=== PATIENT | female | born 1975 | race Caucasian/White ===

== ENCOUNTER 2022-12-04 20:58 | Outpatient (REF) | payer OTHER, SELFPAY ==
[2022-12-09 18:07] LABS: Age Gdln ACOG Testing Note (.); HPV Aptima Negative (Negative); IGP, Aptima HPV, rfx 16/18,45 Note (.)
== END 2022-12-04 20:59 | disposition home or self-care (01) ==
LOC: LAB 20:58
PROVIDERS: Visit Provider Physician Assistant
DX: Z12.4 Encounter for screening for malignant neoplasm of cervix (principal)
CPT/HCPCS: 87624; G0145

== ENCOUNTER 2022-12-18 15:54 | Outpatient (OUT) | payer OTHER, SELFPAY ==
[2022-12-18 16:43] LABS: Basophils Percent Auto 0.1 % (0.2-2.0); Eosinophils Absolute Auto 0.3 10^3/uL (0.0-0.7); Eosinophils Percent Auto 3.6 % (0.9-7.0); Hematocrit 37.2 % (36.0-48.0); Hemoglobin 12.3 g/dL (12.0-16.0); Immature Granulocytes Abs Auto 0.02 10^3/uL (0.00-0.03); Immature Granulocytes Pct Auto 0.3 % (0.0-0.5); Lymphocytes Absolute Auto 1.7 10^3/uL (1.2-3.8); Lymphocytes Percent Auto 24.5 % (20.5-60.0); Mean Corpuscular HGB Conc 33.1 g/dL (29.9-35.2); Mean Corpuscular Hemoglobin 30.4 pg (26.7-34.0); Mean Corpuscular Volume 91.9 fL (81.0-99.0); Mean Platelet Volume 10.1 fL (9.5-13.5); Monocytes Absolute Auto 0.4 10^3/uL (0.3-0.8); Monocytes Percent Auto 5.5 % (1.7-12.0); Neutrophils Absolute Auto 4.6 10^3/uL (1.4-6.5); Platelet Count 287 10^3/uL (150-450); Red Blood Count 4.05 10^6/uL (4.20-5.40); Red Cell Distribution Width 13.8 % (11.0-15.0)
[2022-12-18 17:41] LABS: HCG Quantitative <1 mIU/mL; Thyroid Stimulating Hormone 1.311 uIU/mL (0.358-3.740)
[2022-12-18 18:01] LABS: Estimated Average Glucose 94 mg/dL; Glycohemoglobin A1C 4.9 % (4.5-6.2)
[2022-12-20 04:07] LABS: Prolactin 11.7 ng/mL (4.8-23.3)
== END 2022-12-18 15:55 | disposition home or self-care (01) ==
PROVIDERS: Visit Provider Physician Assistant
DX: N91.2 Amenorrhea, unspecified (principal)
CPT/HCPCS: 36415; 83036; 84146; 84443; 84702; 85025

== ENCOUNTER 2023-01-02 08:13 | Outpatient (OUT) | payer OTHER, SELFPAY ==
[2023-01-02 10:40] LABS: Free T3 2.16 pg/mL (2.18-3.98); Glucose 83 mg/dL (74-106); Thyroid Stimulating Hormone 0.885 uIU/mL (0.358-3.740)
[2023-01-02 11:00] LABS: Free T4 0.71 ng/dL (0.76-1.46)
[2023-01-03 04:07] LABS: DHEA-Sulfate 72.7 ug/dL (41.2-243.7); Progesterone 0.1 ng/mL (.); Sex Horm Binding Glob, Serum 80.9 nmol/L (24.6-122.0)
[2023-01-03 12:08] LABS: Insulin 4.3 uIU/mL (2.6-24.9)
[2023-01-03 14:10] LABS: C-Peptide, Serum 1.5 ng/mL (1.1-4.4)
[2023-01-05 12:08] LABS: Calcitriol(1,25 di-OH Vit D) 43.3 pg/mL (24.8-81.5)
[2023-01-05 17:08] LABS: Thyroglobulin Antibody <1.0 IU/mL (0.0-0.9); Thyroid Peroxidase (TPO) Ab 14 IU/mL (0-34)
[2023-01-06 14:13] LABS: Estrone, Serum 74 pg/mL (.)
[2023-01-06 16:08] LABS: Reverse T3, Serum 14.1 ng/dL (9.2-24.1)
[2023-01-08 06:09] LABS: Serotonin, Serum 101 ng/mL (31-207)
[2023-01-09 18:11] LABS: Free Testosterone(Direct) 0.7 pg/mL (0.0-4.2); Testosterone 23 ng/dL (4-50)
== END 2023-01-02 08:14 | disposition home or self-care (01) ==
PROVIDERS: Visit Provider Obstetrics & Gynecology
DX: E28.319 Asymptomatic premature menopause (principal); R68.82 Decreased libido; R45.86 Emotional lability
CPT/HCPCS: 36415; 82530; 82627; 82652; 82670; 82679; 82728; 82947; 83525; 84144; 84260; 84270; 84402; 84403; 84439; 84443; 84481; 84482; 84681; 86800

== ENCOUNTER 2025-02-15 20:48 | Outpatient (REF) | payer OTHER, SELFPAY ==
--- OUTSIDE RECORDS SUMMARY | 2011-11-03 07:29 | XMS_ITS | Continuity of Care Document ---
Author Organization [facility] In [facility] [employer] Address [address] [place] [address] Phone Care Team Providers Care Purchasing Clerk Name Role Phone Meghan Bowling Unavailable [...] Provider Providers Copied on Encounter [facility] [employer] [facility], [address] [address], [place], [place], [facility], tel:[phone] JAVON ATKINS No Information 2 Tawnya Meghan. [address] [address], [place], [place], [address] , [place]. tel:[phone] Offic/outpt E&m Estab Minor 10 [facility] [employer] [facility], [address] [address], [place], [place], [facility], tel:[phone] JAVON ATKINS Vaginal Rash (chief complaint) Bacterial Vaginosis/ Nonspecific 2 Tawnya Christianson. [address] [address], [place], [place], [address] , [place]. tel:[phone] [facility] [employer] [facility], [address] [address], [facility] [place], [facility], tel:[phone] JAVON ATKINS abnormal pap smear (chief complaint) No Information 2 Tawnya Christianson. [address] [address], [place], [place], [address] , [place]. tel:[phone] Offic/outpt E&m Estab Low-mod [facility] [employer], [address], [place], [address], [place] tel:[phone] JAVON NICHOLSONMIPUNEET abnormal pap smear (chief complaint) No Information 2 Tawnyakaterin Khanen. [address] [address], [place], [place], [address] , [place]. tel:[phone] Preven Meds E&m Estab Pt; 18-3 [facility] [employer] [facility], [address] [address], [place], [address], [place] tel:[phone] JAVON ATKINS annual visit (chief complaint) Dysplasia Of CX- MildRoutine LICENSED BONDSMAN Exam W/wo A PapContracepti ve Mangmt NecOther Procreative Management Cons Advice 1 Tawnya Christianson. [address] [address], [place], [place], [address] , [place]. 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 [address] [address], [place], [place], [address] , [place]. tel:[phone] Offic/outpt E&m Estab Low-mod [facility] [employer] [facility], [address] [address], [place], [address], [place] tel:[phone] JAVON NICHOLSONMILL No Information 1 Tawnya Christianson. [address] [address], [place], [place], [address] , [place]. tel:[phone] Preven Meds E&m Estab Pt; 18-3 [facility] [employer] [facility], [address], [place], [address], [place] tel:[phone] KANEZACOOG MILLY No Information [address] Tawnya Christianson. [address] [address], [place], [place], [address] , [place]. tel:[phone] Family History Family Member Type Diagnosis Age [...] Covered libertarian ID Liam casianocathie(cleve) Yoandy BREANNAO [id number] Social History Type Description Quantity Date Captured Comments Sex Female Smoking Status No Information Chief Complaint And Reason For Visit No Information Reason For Referral Reason For Referral No Information Plan Of Treatment Date Type Action Status Goal Tdap. Due on due Goal LICENSED BONDSMAN exam. Due on due Goal PAP. Due on due Goal Breast exam. Due on 010 due History Of Present Illness Encounter Date Complaint History Of Prese nt Illness No Information Functional Status Date Functional Assessmen t No Information Instructions Date Instruction Additional Infor mation No Information Assessments Type Assessment Date No Information Patient Care Teams Name Effective Dates (start - stop) Status Members No Information
--- OUTSIDE RECORDS SUMMARY | 2011-11-03 07:29 | XMS_ITS | Continuity of Care Document ---
Author Organization [facility] In [facility] [employer] Address [address] [place] [address] Phone Care Team Providers Care Government Teacher Name Role Phone Meghan Bowling Unavailable Unavailable [...] Provider Providers Copied on Encounter [facility] [employer] [facility], [address] [address], [place], [place], [facility], tel:[phone] JAVON ATKINS No Information 2 Tawnya Meghan. [address] [address], [place], [place], [address] , [place]. tel:[phone] Offic/outpt E&m Estab Minor 10 [facility] [employer] [facility], [address] [address], [place], [place], [facility], tel:[phone] JAVON ATKINS Vaginal Rash (chief complaint) Bacterial Vaginosis/ Nonspecific 2 Tawnya Christianson. [address] [address], [place], [place], [address] , [place]. tel:[phone] [facility] [employer] [facility], [address] [address], [facility] [employer] [place], [facility], tel:[phone] JAVON ATKINS abnormal pap smear (chief complaint) No Information 2 Tawnya Christianson. [address] [address], [place], [place], [address] , [place]. tel:[phone] Offic/outpt E&m Estab Low-mod [facility] [employer], [address], [facility] [place], [address], [place] tel:[phone] JAVON NICHOLSONMIPUNEET abnormal pap smear (chief complaint) No Information 2 Tawnyakaterin Khanen. [address] [address], [place], [place], [address] , [place]. tel:[phone] Preven Meds E&m Estab Pt; 18-3 [facility] [employer] [facility], [address] [address], [facility] [place], [address], [place] tel:[phone] JAVON ATKINS annual visit (chief complaint) Dysplasia Of CX- MildRoutine MANAGER OF PROGRAM Exam W/wo A PapContracepti ve Mangmt NecOther Procreative Management Cons Advice 1 Tawnya Christianson. [address] [address], [place], [place], [address] , [place]. 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 [address] [address], [place], [place], [address] , [place]. tel:[phone] Offic/outpt E&m Estab Low-mod [facility] [employer] [facility], [address] [address], [facility] [place], [address], [place] tel:[phone] JAVON NICHOLSONMILL No Information 1 Tawnya Christianson. [address] [address], [place], [place], [address] , [place]. tel:[phone] Preven Meds E&m Estab Pt; 18-3 [facility] [employer] [facility], [address], [place], [address], [place] tel:[phone] KANEZACOOG MILLY No Information [address] Tawnya Christianson. [address] [address], [place], [place], [address] , [place]. tel:[phone] Family History Family Member Type Diagnosis Age [...] (finding) Payers Payer name Insurance type Covered republican ID Liam casianocathie(cleve) Yoandy BREANNAO [id number] Social History Type Description Quantity Date Captured Comments Sex Female Smoking Status No Information Chief Complaint And Reason For Visit No Information Reason For Referral Reason For Referral No Information Plan Of Treatment Date Type Action Status Goal Tdap. Due on due Goal MANAGER OF PROGRAM exam. Due on due Goal PAP. Due [...]
[2025-02-20 12:08] LABS: Age Gdln ACOG Testing Note (.); IGP, Aptima HPV, rfx 16/18,45 Note (.)
== END 2025-02-15 20:49 | disposition home or self-care (01) ==
LOC: LAB 20:48
PROVIDERS: Visit Provider Obstetrics & Gynecology
DX: Z01.419 Encounter for gynecological examination (general) (routine) without abnormal findings (principal)
CPT/HCPCS: 87624; 88175

== ENCOUNTER 2025-03-23 12:28 | Emergency (ER) | payer OTHER, SELFPAY ==
--- OUTSIDE RECORDS SUMMARY | 2011-11-03 07:29 | XMS_ITS | Continuity of Care Document ---
Author Organization Associates In [facility] [employer] Address [address] [place] [address] Phone Care Team Providers Care Reconsignment Clerk Name Role Phone Meghan Bowling Unavailable Unavailable Allergies, Adverse Reactions, Alerts Substance Reaction Status Criticality PROCHLORPERAZINE MALEATE Active No Information PROCHLORPERAZINE EDISYLATE Active N o Information Phenothiazines Active No Informatio n Medications Medication Instructions Dosage Effective Dates (start - stop) Status Comments Neosporin 1.75 mg-10K unit-0.025 mg/mL Eye Drops apply by Topical route Not Available - Active Ortho-Cyclen (28) 0.25 mg-35 mcg Tab take 1 tablet by oral route every day - Active VITAMIN C (unknown strength) Not Available - Active TRIAMCINOLONE (unknown strength) Not Available - Active FIBER (unknown strength) Not Available - Active MULTIVITAMINS (unknown strength) take 1 capsule by oral route every day Not Available - Active Procedures Procedure Date Offic/outpt E&m Estab Minor 12 Offic/outpt E&m Estab Minor 12 Colposcopy; W/bx-cerv &/or End 12 Offic/outpt E&m Estab Low-mod 2 Offic/outpt E&m Estab Low-mod 2 Cytopath Cerv/vag Thin Prep; R 12 Cytopath Cerv/vag; Req Interpt 12 Preven Meds E&m Estab Pt; 18-3 11 Preven Meds E&m Estab Pt; 11 Offic/outpt E&m Estab Low-mod 1 Cytopath Cerv/vag Thin Prep; R 11 Cytopath Cerv/vag; Req Interpt 11 Offic/outpt E&m Estab Low-mod 1 Offic/outpt E&m Estab Low-mod 1 Cytopath Cerv/vag Thin Prep; R 11 Cytopath Cerv/vag; Req Interpt 11 Preven Meds E&m Estab Pt; 10 Cytopath Cerv/vag Thin Prep; R 10 Advance Directives Directive Yes / No Effective Date File Name No Information Encounters Encounter Description Practice Location Reason(s) For Visit Diagnoses Date Provider Providers Copied on Encounter [facility] [employer] [facility], [address] [address], [place], [place], [facility], tel:[phone] JAVON ATKINS No Information 2 Tawnya Meghan. [address] [address], [place], [place], [address] , [place]. tel:[phone] Offic/outpt E&m Estab Minor 10 [facility] [employer] [facility], [address] [address], [place], [place], [facility], tel:[phone] JAVON ATKINS Vaginal Rash (chief complaint) Bacterial Vaginosis/ Nonspecific 2 Tawnya Christianson. [address] [address], [place], [place], [address] , [place]. tel:[phone] [facility] [employer] [facility], [address] [address], [facility] [place], [facility], tel:[phone] JAVON ATKINS abnormal pap smear (chief complaint) No Information 2 Tawnya Christianson. [address] [address], [place], [place], [address] , [place]. tel:[phone] Offic/outpt E&m Estab Low-mod [facility] [employer], [address], [place], [address], [place] tel:[phone] JAVON NICHOLSONMIPUNEET abnormal pap smear (chief complaint) No Information 2 Tawnyakaterin Khanen. [address] [address], [place], [place], [address] , [place]. tel:[phone] Preven Meds E&m Estab Pt; 18-3 [facility] [employer] [facility], [address] [address], [place], [address], [place] tel:[phone] JAVON ATKINS annual visit (chief complaint) Dysplasia Of CX- MildRoutine INSTALLMENT AGENT Exam W/wo A PapContracepti ve Mangmt NecOther Procreative Management Cons Advice 1 Tawnya Christianson. [address] [address], [place], [place], [id number] , [place]. 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 [address] [address], [place], [place], [address] , [place]. tel:[phone] Offic/outpt E&m Estab Low-mod [facility] [employer] [facility], [address] [address], [place], [address], [place] tel:[phone] JAVON NICHOLSONMILL No Information 1 Tawnya Christianson. [address] [address], [place], [place], [address] , [place]. tel:[phone] Preven Meds E&m Estab Pt; 18-3 [facility] [employer] [facility], [address], [place], [address], [place] tel:[phone] KANEZACOOG MILLY No Information 0 Tawnya Christianson. [address] [address], [place], [place], [address] , [place]. tel:[phone] Family History Family Member Type Diagnosis Age At Onset Father Problem (finding) alcoholism Maternal grandmother Problem (finding) cancer (Cause O f ) Maternal grandmother Problem (finding) Mother Problem (finding) diabetes melli tus in first degree relative Maternal grandfather Problem (finding) Maternal grandfather Problem (finding) malignant neoplasm of lung (Cause Of ) Maternal grandmother Problem (finding) Maternal grandfather Problem (finding) Payers Payer name Insurance type Covered libertarian ID Liam casianocathie(cleve) Yoandy BREANNAO [id number] Social History Type Description Quantity Date Captured Comments Sex Female Smoking Status No Information Chief Complaint And Reason For Visit No Information Reason For Referral Reason For Referral No Information Plan Of Treatment Date Type Action Status Goal Breast exam. Due on 010 due Goal PAP. Due on due Goal INSTALLMENT AGENT exam. Due on due Goal Tdap. Due on due History Of Present Illness Encounter Date Complaint History Of Prese nt Illness No Information Functional Status Date Functional Assessmen t No Information Instructions Date Instruction Additional Infor mation No Information Assessments Type Assessment Date No Information Patient Care Teams Name Effective Dates (start - stop) Status Members No Information
--- OUTSIDE RECORDS SUMMARY | 2025-03-21 15:35 | XMS_ITS | Encounter Summary ---
Author Organization [facility] Address [address] [facility] [place] [address] Care Team Providers Care Inspector Structural Bonding Name Role Phone Shu Kitchen MD Primary Care Provider [phone] Encounter Details DateTypeDepartmentCare Team (Latest Contact Info)Obfcwhcrbsh85/23/2025 3:35 PM ESTOffice Visit [facility] [address] [facility] [address] [place] [id number] Ally Romero, SALES CONTRACTS ANALYST [address] [place] [address] Acute cough (Primary Dx); Pharyngitis, unspecified etiology; Bronchitis Social History Tobacco UseTypesPacks/DayYears UsedDateSmoking Tobacco: UnknownAlcohol Use Standard Drinks/WeekCommentsYes1 (1 standard drink = 0.6 oz pure alcohol) Caffeine intake: 1-2 cups per dayCommentsNoSex and Gender Information ValueDate RecordedSex Assigned at OwgwgXzwplm95/07/2023 9:39 AM EDTLegal Sex Sfporg5406/11/2022 7:27 PM EDTGender PlytxtfbRdqtxt93/07/2023 9:39 AM EDTSexual CembaaijeuhPcsuawnp67/07/2023 9:39 AM EDTdocumented as of this encounter Last Filed Vital Signs Vital SignReadingTime TakenCommentsBlood Knygbugh708/6803/21/2025 3:33 PM EST Xfjyv252003/21/2025 3:33 PM ZQFLkqydlkrzjl11 ??C (98.6 ??F)03/21/2025 3:33 PM EST Respiratory Loow824305/22/2024 3:33 PM ESTOxygen Yqsbyfktji50%03/21/2025 3:33 PM ESTInhaled Oxygen Concentration--Rfkmcx35.4 kg (142 lb)03/21/2025 3:33 PM EST Height--Body Mass Index26.8310 10:19 AM EDTdocumented in this encounter Plan of Treatment Not on file documented as of this encounter Procedures Procedure NamePriorityDate/TimeAssociated DiagnosisCommentsSTREP DNA PROBE Wdsxbfs8403/21/2025 4:12 PM EST Pharyngitis, unspecified etiology RAPID DNA PYMORHstuhta44/23/2025 4:12 PM EST Pharyngitis, unspecified etiology INFLUENZA DNA XVQLQRnucuys79/23/2025 4:11 PM EST Pharyngitis, unspecified etiology documented in this encounter Results * RAPID DNA COVID (03/21/2025 4:12 PM EST)ComponentValueRef RangeTest Method Analysis TimePerformed AtPathologist SignatureCOVID-19 NAATNegativeNegative Specimen (Source)Anatomical Location / LateralityCollection Method / Volume Collection TimeReceived CbafIciob43/23/2025 4:12 PM EST Narrative Authorizing ProviderResult TypeResult StatusAnthony G Tesmond DOPOINT OF CARE TEST ENTER/EDIT ORDERABLESFinal Result * STREP DNA PROBE (03/21/2025 4:12 PM EST)ComponentValueRef RangeTest Method Analysis TimePerformed AtPathologist SignatureRESULTNegativeNegativeSpecimen (Source)Anatomical Location / LateralityCollection Method / VolumeCollection TimeReceived XvsdNkrgxe73/23/2025 4:12 PM EST Narrative Authorizing ProviderResult TypeResult StatusAnthony G Tesmond DOPOINT OF CARE TEST ENTER/EDIT ORDERABLESFinal Result * INFLUENZA DNA PROBE (03/21/2025 4:11 PM EST)ComponentValueRef RangeTest Method Analysis TimePerformed AtPathologist SignatureINFLUENZA ANegativeNegative INFLUENZA BNegativeNegativeSpecimen (Source)Anatomical Location / Laterality Collection Method / VolumeCollection TimeReceived KzipEcqmz83/23/2025 4:11 PM EST Narrative Authorizing ProviderResult TypeResult StatusSavage Whitfield DOPOINT OF CARE TEST ENTER/EDIT ORDERABLESFinal Result documented in this encounter Visit Diagnoses Diagnosis Acute cough- Primary Pharyngitis, unspecified etiology Bronchitis Bronchitis, not specified as acute or chronic documented in this encounter Care Teams Team MemberRelationshipSpecialtyStart DateEnd Date Shu Kitchen MD [address] [place] [id number] PCP - GeneralFamily Medicine12/04/22documented as of this encounter
--- OUTSIDE RECORDS SUMMARY | 2025-03-21 19:58 | XMS_ITS | Continuity of Care Document ---
Author Organization [facility] Address [address] [place] [address] Phone Care Team Providers Care Auto Heater Mechanic Name Role Phone Shu Kitchen MD Primary Care Provider Chidi Daniel DO Attending Provider Care Teams Patient Care Team Team Status: Active Member Role/Relationship Status Dates Shu Kitchen MD Primary Care Provider Active Visit Care Team Team Status: Inactive Member Role/Relationship Status Dates Shu Kitchen MD Primary Care Provider Active Start: January 20, 2025 End: January 20Mayra Gillespie ProviderActiveStart: January 20, 2025 End: January 20, 2025 Visit Care Team Team Status: Inactive Member Role/Relationship Status Dates Shu Kitchen MD Primary Care Provider Active Start: March 21, 2025 End: March 21Mayra Gillespie ProviderActiveStart: March 21, 2025 End: March 21, 2025 Chief Complaint and Reason for Visit Chief Complaint Admit Date See order January 20, 2025 9 :44am Z78.0 screening March 21, 2025 2:36pm Allergies, Adverse Reactions, Alerts Allergen Type Severity Reaction Last Updated Verified Status prochlorperazine Allergy Unknown Unknown Reaction [facility] 2024 11:42am Yes Active amoxicillin Allergy Unknown Nausea June 01 11:42am Yes Active Phenothiazines Allergy Unknown Unknown Reaction Hao h 2024 11:42am Yes Active Social History Smoking Status Status Start Date End Date Date of Observa tion Never smoked tobacco (finding) March 03, 2024 12:13pm Observation Status Observation Response Date of Response Legal Sex Female (finding) Sex Assigned At BirthFemaleJanuary 1975Gender IdentityCisgender/Not transgender (finding)December 30isgender/Not transgender (finding)December 30isgender/Not transgender (finding)December 31, 2023Sexual Orientation UnknownUnknownUnknown Family History Relationship Condition Age at Onset Recorded Date/T everardo mother Diabetes mellitus Unknown High blood cholesterolUnknownBlepharitisUnknownHypertensionUnknownPrimary open- angle glaucoma (POAG), mild stageUnknownfatherHypertensionUnknownPulmonary emphysemaUnknownHeart diseaseUnknownmaternal grandmotherChronic mental illness UnknownHypothyroidismUnknownPulmonary emphysemaUnknownHypertensionUnknownChronic obstructive pulmonary diseaseUnknownmaternal grandfatherAlzheimer's dementia UnknownPulmonary emphysemaUnknownHypertensionUnknownPolyp of colonUnknown Malignant neoplasm of lungUnknownChronic obstructive pulmonary diseaseUnknown Problems Active Problems Problem Diagnosis/Recorded Date Onset Date Status C omments Right upper quadrant pain June 09, 2023 10:34am Unknown Active DysphagiaOctober 2023 11:00amUnknownActiveWellness examinationOctober 2023 10:58amUnknownActiveHypothyroidJanuary 2022 6:47pmUnknownActive Problem List clean-up per request of Phys. EHR CmteMenopausal stateJuly 2024 12:53pmUnknownActiveInflammation around jointJuly 2024 12:53pmUnknown ActivePre-operative examMarch 2024 12:26pmUnknownActiveAbdominal bloating June 09, 2023 10:34amUnknownActiveLiver cystFebruary 2024 3:00pmUnknown ActiveGERD (gastroesophageal reflux disease)June 09, 2023 7:29amUnknownActive Abdominal painMay 2023 10:47amUnknownActiveBronchitisDecember 2022 2:51pmUnknownActiveNauseaApril 2023 1:12pmUnknownActiveInactive/Resolved Problems Problem Diagnosis/Recorded Date Onset Date Status C omments Migraine April 28, 2022 8:49pm Unknown Resolved Problem List clean-up per request of Phys. EHR Cmte Knee pain, right November 19, 2021 5:32pm Unknown Resol jareth Problem List clean-up per request of Phys. EHR Cmte Bronchitis March 21, 2023 2:51pm Unknown Resolved Chest painMaruary 2022 8:49pmUnknownResolvedProblem List clean-up per request of Phys. EHR CmteAcute abdominal pain in right upper quadrantAd[facility] 2023 7:10pmUnknownResolved Medications Medication Status Dose Units Route Directions Qty Days Refills S tart Date Stop Date End Date Reason(s) Instructions Adherence Oxycodone-Acetaminophen 5-32 5 mg tablet Discontinued 1 TAB PO Q6H as needed for pain 10 3 0 November 19, 2021 June 09, 2023 10:15amRight knee pain Pain in right kneeIbuprofen 600 mg khickoGjblqyuejqhv983PFWMA0Q as needed for fever or pwiv427Ykeray 2021 11:00pmMarch 2023 10:15amCodeine- Guaifenesin 10-200 mg/5 mL igxjkxUdexpyjoixqy80XMWZEIINS 4-6 HOURS as needed for qyiah21647Btwrhbhv 2022 12:00amMarch 2023 10:15amBronchitis Bronchitis, not specified as acute or chronicCalcium Carbonate-Vitamin D2 600 mg calcium- 200 unit xiepusZmaearcoowcz3PGQRLFdgaxQewikarr 2023 12:00amMarch 2024 11:43amAscorbic Acid (Vitamin C) (Vitamin C) 1,000 mg Tablet Xullpbcxivrt7043XNSEWpvmyOxfmv 2017 11:00pmAugust 2021 3:29pm Omeprazole 40 mg capsule,delayed release(DR/EC)Mtmhwgnxwslj41DSOWCkwoy daily June 25, 2017 11:[place] 2021 3:29pmDicyclomine 10 mg capsule Bsbfktsedyug44RMOWIxqxa times dailyAdams County Hospital 2017 11:00pm[place] 2021 3:29pmVitamin E 400 unit TtripnrQathuiwlgzii0FKEORNwtzdEwmwk 2017 11:00pm November 19, 2021 3:29pmFolic Acid 800 mcg OtibdrWayaodprkzeg1PVCAUSswxpLkhhe 2017 11:pm[place] 2021 3:29pmMultivitamin Tablet,Chewable Brlywflztxzs6YLAEEVpuxxNblih 2017 11:00pm[place] 2021 3:29pmCalcium Carbonate-Vitamin D3 (Calcium 500 + D) 500 mg(1,250mg) -200 unit Tablet Uzzwrolvlprh4BTOOABbejmSixtd 2017 11:00pm[place] 2021 3:29pmThyroid (Pork) 90 mg hhwfgjWgejvp51FVVBBbnjdXceee 2017 11:00pmUnknownSimethicone (Gas-X Extra Strength) 125 mg GnhjbptOcsnvyzfwpvx2ZMQILPm [facility] 2017 11:00pm[place] 2021 3:29pmCalcium Carbonate (Tums) 200 mg calcium (500 mg) Tablet,BkqszgufZlqkvvfpentb3QHGNLCc [facility] 2017 11:00pm[place] 2021 3:29pmNaproxen (Naprosyn) 500 mg bmotcaKlrjiouzkhjh014FFPLHgugy daily as needed for tszy6914Wrmbvcn 20[address] 12:[address] [facility] 2023 10:16am Ondansetron 4 mg tablet,shpsxxokjoepgeOyrfrpdqkdvk7GGWVqsiju 6 to 8 hours as needed for Nqexgl034Uhwcp 2023 12:00amMarch 2023 10:16amMultivitamin (Daily Multi-Vitamin) jzlfbyAvbwib1PNISXGvhacNtext 2023 11:00pmUnknown Magnesium Oxide 400 mg magnesium fwaniehRsirpw519NGXMPxlyuKlkzo 2023 11:00pmUnknownTurmeric 400 mg tsphkgvRlaaye713CWWGWnfmrBuuoh 2023 11:00pm UnknownEve Ijan-Tdzakbsw-Nouqexxeg Ac ([place] Oil) 1,000 mg mxhmikrRoqnwg9MHV PODailyApril 2023 11:00pmadminister with a mealUnknownCholecalciferol (Vitamin D3) 125 mcg (5,000 unit) gniczkfRxdbrh810ZHBHXUqdooZfobn 2023 11:00pmUnknownLoratadine (Allergy Relief (Loratadine)) 10 mg ulybgqPqtsey37RJCR DailyApril 2023 11:00pmUnknownvitamin B weajylnWlrhkh2PDTYDKplpsGtkyv 2023 11:00pmUnknownlactobacillus combination no.3Jhoxat8ERZVLQlfhbGumdy 2023 11:00pmUnknownMetoprolol Succinate 25 mg tablet extended release 24 gaEkozcl48KKPOKbhekXkstk 2023 11:00pmUnknownAlbuterol Sulfate 90 mcg/actuation HFA aerosol yflkacfRkrqzkchzltw1WWDVUXZTGCNRGRNjlwy 4 hoursMay 30, 2024 12:00amMarch 2024 11:42amFreeTextSi puff Inhalation every 4 hrs prn; Note: Source Status: Start; Refills: 0; Qty: 1 Each; Provider: Imtiaz Ireland EOmeprazole 40 mg capsule,delayed release(DR/EC)Itvhjhulkqoy8JCCDPEemdm May 30, 2024 12:00amMarch 2024 11:44amFreeTextSi capsule 30 minutes before morning meal Orally Once a day; Note: Source Status: Refill; Provider: Imtiaz Ireland EAscorbic Acid (Vitamin C) 1,000 mg txbutzIypnyxymnabh6QCSNBEqfud May 30, 2024 12:00amMarch 2024 11:43amFreeTextSi tablet Orally Once a day; Note: Source Status: Taking; Provider: Imtiaz Ireland ( ) Cholecalciferol (Vitamin D3) 10 mcg (400 unit) cbkdwzYtlyrwycofyh23ORTXJUibyg May 30, 2024 12:00amMarch 2024 11:43amMagnesium 200 mg tablet Htokzovguooi306LHUGYnbapCyvlf 2024 12:00amMarch 2024 11:44amFolic Acid 1 mg emdnozIbeldfmcaljm2UVJISgqlzRpnxj 2024 12:00amMarch 2024 11:43am Calcium Carbonate (Calcium 500) 500 mg calcium (1,250 mg) tablet,chewableActive 500MGPODailyMar 2024 12:00amUnknownCalcium Citrate 250 mg calcium tablet Zooktnrmebne632KDZDQnjdaGitcyoz 2023 11:00pmNov2023 10:14am Fluconazole 100 mg dsrjukFyxscnjvrbwu052LXQEMosdu666Sjosbor 2023 11:00pm February 19, 2024 10:15amTerconazole 0.4 % deuljFqzuarxmstqg7XYBMCLNVJJvins at nggihgc5116Kbwenrz 2023 11:00pmFebruary 19, 2024 10:16am Immunizations Immunization Event Date Not Given Reason Dose Number Button Attaching Machine Operator Lot Number Reason(s) Given Vaccine Information Statement (VIS) Detail Administration Location DTap, unspecified August 24, 2020 influenza, [facility] 2018influenza, unspecified formulationSept2019influenza, unspecified formulationOctmuhlenberg [facility] 2020 Medical Equipment Device Date Implanted Device Details [id number] .045 STERILE 4IN March 18, 2017 SCREW 3.0MM ASNIS MICRO 16/4MMDecember 2016 Procedures Procedure Date Performed Status MM screening mammo BI w/CAD March 21, 2025 2:37pm active XR dexa axial skeleton March 21, 2025 2:37p m completed Relevant Diagnostic Tests and/or Laboratory Data Laboratory Results Test Collection Date/Time Result Date/Time Result Interpretation Reference Range Result Comment Performing Site Glucose Level January 20, 2025 9:04am January 20, 2025 10:11am 89 mg/dL 70-100ADA recommended reference rangeRandom Glucose Reference Range is dependent on time and content of last meal. Glucose of more than 200 mg/dL in a nonstressed, ambulatory subject supports the diagnosisof Diabetes Mellitus. [facility] [id number] [address] [facility] [address]YfdaywtvIjzfbra 2024 9:04amOctober 2024 10:28am27.0 ng/mL11.0-306.8[facility] [id number] [address] [facility] [address]Birf ThyroxineOctober 2024 9:04amOctober 2024 10:26am0.51 ng/dLBelow low normal0.61-1.12[facility] [id number] [address] [facility] [address]Ahvbl ThyroxineOctober 2024 9:04amOctober 2024 10:21am6.11 ug/dL5.39-11.82[facility] [id number] [address] [facility] [address]Eoig TriiodothyronineOctober 2024 9:04amOctober 2024 10:16am3.01 pg/mL2.50-3.90[facility] [id number] [address] [facility] [address]Ufhrxuv Stimulating Hormone 3rd GenOctober 2024 9:04am January 20, 2025 10:22am1.64 u[iU]/mL0.45-5.33[facility] [id number] [address] [facility] [address]Wqbrs CortisolOctober 2024 9:04amOctober 2024 10:20am9.0 ug/dLAt[facility] line lead and method:RACHELL Circle of MomsEL DXI, POLYCLONAL ANTIBODY CORTISOL ASSAY.Reference range: AM 6 - 24 ug/dl PM <10 ug/dlAv[facility] [id number] [address] [facility] [address]Btvrycolkp C4iJjvdswr 2024 9:04amOctober 2024 10:54am5.3 %4.3-5.6Increased risk for diabetes: 5.7 - 6.4diabetes: >6.4glycemic control for adults with diabetes: <7.0[facility] [id number] [address] [facility] [address]Chxxehtew Average GlucoseOctober 2024 9:04amOctober 2024 10:55uy677 mg/dLAvita Health [facility] [id number] [address] [facility] [address]Hwppfmm Triiodothyronine (T3)January 20, 2025 9:04amOctober 2024 5:08pm18.5 ng/dL9.2-24.1This test was developed and its performance characteristicsdetermined by [facility]. It has not been cleared orapproved by the Food and Drug Administration.Performed at: [address] [id number] Director: Yue Mcclure MD, Phone: [phone] (ng/dl)January 20, 2025 9:04am January 24, 2025 9:36am13 ng/dL4-50[facility] Testosterone January 20, 2025 9:04amOctober 2024 9:36am0.9 pg/mL0.0-4.2Performed at: [address] [id number] Director: Robb Rodriguez PhD, Phone: [phone] at: [address] [id number] Director: Yue Mcclure MD, Phone: [phone] Peroxidase AntibodiesOct2024 9:04amOctober 2024 2:36am11 [IU]/mL0-34[facility] Hormone Binding GlobulinOct2024 9:04amOctober 2024 2:36am53.3 nmol/L 17.3-125.0Performed at: [address] [id number] Director: Robb Rodriguez PhD, Phone: [phone] ,25 Dihydroxy Vitamin DOctober 2024 9:04amOctober 2024 10:08am70.2 pg/mL24.8-81.5Performed at: [place] [address] [place], [place] [id number] Director: Yue Mcclure MD, Phone: [phone] [facility] LevelOctober 2024 9:04amOctober 2024 2:36am0.1 ng/mL.Follicular phase 0.1 - 0.9 Luteal phase 1.8 - 23.9 Ovulation phase 0.1 - 12.0 First trimester 11.0 - 44.3 Second trimester 25.4 - 83.3 Third trimester 58.7 - 214.0 Postmenopausal 0.0 - 0.1[facility] LevelOctober 2024 9:04amOctober 2024 2:07am6.4 u[iU]/mL2.6-24.9Performed at: [address] [id number] Director: Robb Rodriguez PhD, Phone: [phone] SulfateOct2024 9:04amOctober 2024 2:36am58.6 ug/dL41.2-243.7[facility] 2024 9:04amOctober 2024 2:36am2.0 ng/mL1.1-4.4C-Peptide reference interval is for fasting patients.[facility] (E2) Level January 20, 2025 9:04amOctober 2024 2:36am94.0 pg/mL.Adult Female Range Follicular phase 12.5 - 166.0 Ovulation phase 85.8 - 498.0 Luteal phase 43.8 - 211.0 Postmenopausal <6.0 - 54.7 1st trimester 215.0 - >4300.0Roche ECLIA methodologyLabCorp (E1)January 20, 2025 9:04am October 28th, 2025 1:36pm26 pg/mL.Range Adult (Premenopausal) 27 - 231 Menstrual Cycle (1-10 days) 19 - 149 Menstrual Cycle (11-20 days) 32 - 176 Menstrual Cycle (21-30 days) 37 - 200 Adult (Postmenopausal) 0 - 125Performed at: [facility]ENTERMe[facility]ty[address] [id number] Director: Yue Mcclure MD, Phone:[phone] AntibodyOct2024 9:04amOctober 2024 8:09am<1.0 [IU]/mL0.0-0.9 Thyroglobulin Antibody measured by Rachell CoulterMethodologyIt should be noted that the presence of thyroglobulinantibodies may not be pathogenic nor diagnostic, especiallyat very low levels. The assay line lead has found thatfour percent of individuals without evidence of thyroiddisease or auto immunity will have positive TgAb levels upto 4 IU/mL.[facility] Thyroglobulin (CHULA)January 20, 2025 9:04amOctober 2024 8:09am6.0 ng/mL 1.5-38.5According to the National Academy of Clinical Biochemistry,the reference interval for Thyroglobulin(TG) should berelated to euthyroid patients and not for patients whounderwent thyroidectomy. TG reference intervals for thesepatients depend on the residual mass of the thyroid tissueleft after surger y. Establishing a post-operative baselineis recommended. The assay limit of quantitation is 0.1ng/mLThyroglobulin measured by Rachell Eggs Overnight ImmunometricAssayPerformed at: [facility] [id number] Director: Robb Rodriguez PhD, Phone: [phone] 24th, 2025 9:04amOctober 2024 7:26ta257 ng/dL96-910Urjf test was developed and its performance characteristicsdetermined by [facility]. It has not been cleared orapproved by the Food and Drug Administration.Performed at: [facility] [address] [id number] Director: Yue Mcclure MD, Phone: [phone] Advance Directives Advance Directive Response Recorded Date/ Time Advance Directives No February 9:17am Insurance Providers Guarantor DavidstevoJyothi Milian Address [address] [place] [address]Phvctqh Info.Home Phone: Coverage Status Update:2024 Payer Group Member ID Coverage Type Subscriber Relationship to Subscriber Effective Date Expiration Date MMO Id: [id number] J Phillips Id: [id number] [address] [facility] [address] Home Phone: [facility] [id number] J Phillips Id: [id number] [address] [facility] [address] Home Phone: Encounters Encounter Location(s) Arrival/Admit Date Discharge/Departure Date Discharge/Departure Disposition Provider(s) Departed Clinical -Lab [facility] January 20, 2025 9:44am January 20, 2025 9:45am Discharged to home care or self care (routine discharge) [facility] March 21, 2025 2:36pm March 21, 2025 2:37pm Discharged to home care or self care (routine discharge) Chidi Daniel Plan of Treatment Future Tests Future scheduled test information is unavailable Pending Tests Test Name Ordered Date Scheduled Date MM screening mammo BI w/CAD March 21, 2025 2:37pm March 21, 2025 2:37pm Future Visits Future appointment information is unavailable Future Procedures Future procedure information is unavailable Future Medications Future medication information is unavailable Patient Instructions Patient instructions are unavailable
[2025-03-23 12:33] VITALS: BP 129/73; PULSE 86; TEMP 37.2; O2SAT 98; BMI 26.5
--- NOTE | 2025-03-23 12:40 | XR_ITS ---
The [address] [address] Patient Name: GILDA STEPHENS MRN: [id number] date: 1975 Sex: F Assigned Patient Location: ED.MAIN Current Patient Location: Accession/Order Number: [id number] Exam Date: 03/23/2025 13:15 Report Date: 03/23/2025 15:35 At the request of: DAVE JI DO Procedure: XR chest 2V Plain film chest 2 view HISTORY: Cough and congestion COMPARISON: 04/13/2021 FINDINGS: SUPPORT DEVICES: None POSTSURGICAL CHANGES: None HEART: Within normal limits PULMONARY ZEB: Within normal limits MEDIASTINUM: Unremarkable LUNGS AND PLEURA: No acute lung process, pleural effusion or pneumothorax identified. BONY STRUCTURES: Intact ADDITIONAL FINDINGS None XR/XR chest 2V IMPRESSION: No acute process. Impression dictated by: Denis Ordoñez M.D. 03/23/2025 3:35 PM Dictation Location: [employer] Electronically authenticated by: [id number] Y Date: 03/23/2025 15:35
--- OUTSIDE RECORDS SUMMARY | 2025-03-23 13:04 | XMS_ITS | Encounter Summary ---
Author Organization [facility] Address [address] [facility] [place] [address] Care Team Providers Care Meatcutter Name Role Phone Shu Kitchen MD Primary Care Provider [phone] Encounter Details DateTypeDepartmentCare Team (Latest Contact Info)Hfwidtlffrx82/23/2025Travel Social History Tobacco UseTypesPacks/DayYears UsedDateSmoking Tobacco: UnknownAlcohol Use Standard Drinks/WeekCommentsYes1 (1 standard drink = 0.6 oz pure alcohol) Caffeine intake: 1-2 cups per dayCommentsNoSex and Gender Information ValueDate RecordedSex Assigned at DkpawHhgpgl06/07/2023 9:39 AM EDTLegal Sex Retibl2306/11/2022 7:27 PM EDTGender LbtjzevsUwgzqk06/07/2023 9:39 AM EDTSexual TlcrubqboqpWucqznbi68/07/2023 9:39 AM EDTdocumented as of this encounter Plan of Treatment Not on file documented as of this encounter Visit Diagnoses Not on filedocumented in this encounter Care Teams Team MemberRelationshipSpecialtyStart DateEnd Date Shu Kitchen MD [address] [facility] [place] [address] PCP - GeneralFamily Medicine12/04/22documented as of this encounter
--- OUTSIDE RECORDS SUMMARY | 2025-03-23 13:04 | XMS_ITS | Clinical Summary ---
Author Organization [facility] Address [address] [place] [place] [address] Care Team Providers Care Tool And Gauge Inspector Name Role Phone Shu Kitchen MD Primary Care Provider [phone] Active Problems ProblemNoted DateDiagnosed DateSacroiliitis, not elsewhere aagfainpyg01/10/2017 Social History Tobacco UseTypesPacks/DayYears UsedDateSmoking Tobacco: Never Assessed CommentsUnknownSex and Gender InformationValueDate RecordedSex Assigned at Not on fileLegal MbhVjnfck60/03/2013 1:46 PM ESTGender MochjgikNppqvn24/31/2017 4:30 PM EDTSexual OrientationNot on file Plan of Treatment Health MaintenanceDue DateLast DoneCommentsHEPATITIS C VIRUS RJRUYOOKF21/05/1974 OSYCFJX7504/03/1975HIV SCREENING HUNIDPYDIS64/05/1989HEP B VACCINE (1 of 3 - 19+ 3-dose series)1992TDAP (ADULT)1992CERVICAL CANCER SCREENING XQHUOFCGZA26/05/1995LIPID ZLZDLOLEA26/05/2014MAMMOGRAM SCREENING DISCUSSION 2013COLORECTAL CANCER SCREENING BIWPSTIFVL78/05/2019PNEUMOCOCCAL VACCINE SERIES (1 of 1 - PCV)2023ZOSTER (SHINGLES) VACCINE (1 of 2)2023 COVID-19 VACCINE (1 - 2024- season)2024INFLUENZA VACCINE (#1)2024 Insurance Care Teams Team MemberRelationshipSpecialtyStart DateEnd Date Shu Kitchen MD PCP - GeneralFamily Ghladyti84/20/17
--- OUTSIDE RECORDS SUMMARY | 2025-03-23 13:04 | XMS_ITS | Clinical Summary ---
Author Organization [facility] Address [address] [place] [address] Care Team Providers Care Lapping Machine Tender Name Role Phone Shu Kitchen MD Primary Care Provider [phone] Allergies Active AllergyReactionsCriticalityNoted DateCommentsAmoxicillinDiarrhea,GI gmjostwnmbrJoedar20/01/2023 Other Reaction(s): Nausea LurfnfgkcsdymyfHog55/17/2024 Other Reaction(s): Other Teeth gtinding FzkgqlcfsewvqdVytdswlOvs08/28/2014 Locked jaw and teeth grinding Other Reaction(s): Other, Unknown Reaction Teeth grinding Medications MedicationSigDispense QuantityRefillsLast FilledStart DateEnd DateStatus Turmeric (QC Tumeric Complex) 500 MG capsule 1 (one) time each day at the same time.Active [place] Thyroid 90 MG tablet Take 90 mg by mouth in the morning.Active Multiple Vitamins-Minerals (Multivitamin Women) tablet OrallyActive metoprolol succinate XL (Toprol-XL) 25 MG 24 hr tablet Take 25 mg by mouth in the morning.11/08/2022ctive Loratadine 10 MG capsule Take by mouth.Active calcium carbonate (Os-Christiano) 1250 (500 Ca) MG tablet every 12 (twelve) hours.Active Ascorbic Acid (Vitamin C) 500 MG capsule OrallyActive Cholecalciferol (Vitamin D3) 1000 units capsule 1 (one) time each day at the same time.Active Bacillus Coagulans-Inulin (PROBIOTIC-PREBIOTIC PO) 5Active Magnesium 300 MG capsule 03/30/2022ctive azithromycin (Zithromax) 250 MG tablet Indications:Acute cough,BronchitisTake 1 tablet (250 mg) by mouth Daily Take 2 tabs on day 1 and 1 tab on days 2-5 then stop 6 tablet 5Active methylPREDNISolone (Medrol Dospak) 4 MG tablets Indications:Acute coughFollow schedule on package instructions 21 tablet 5Active benzonatate (Tessalon) 100 MG capsule Indications:Acute coughTake 1 capsule (100 mg) by mouth 3 (three) times a day as needed for cough for up to 7 days Do not crush or chew. 21 capsule 5Active albuterol HFA 90 mcg/act inhaler Indications:Acute coughInhale 2 puffs every 4 (four) hours if needed for wheezing or shortness of breath 18 g 5Active Active Problems No known active problems Encounters DateTypeDepartmentCare ArjkEmqyruxbbma16/23/2025 3:35 PM ESTOffice Visit [facility] [address] [place] [address] Ally Romero, SNUFF BOX FINISHER Acute cough (Primary Dx); Pharyngitis, unspecified etiology; Tgvzetvlsu82/23/0568Ynmrhy49/03/2025Orders Only [facility] [address] [facility] [address] Simona Davis MA 02/22/2025Telephone [facility] [address] [place] [address] Chidi Daniel DO 02/15/2025 1:00 PM ESTOffice Visit [facility] [address] [place] [address] Chidi Daniel, Well woman exam with routine gynecological exam; Encounter for screening mammogram for malignant neoplasm of breast; Postmenopausal state5Clinisync Result Encounter [facility] External Department Unsolicited Chidi Daniel DO 5Bamboo flowsheet [facility] [address] [place] [address] Chidi Daniel, DO 02/13/20253797Hsuvbd77/24/2025External Result Encounter [facility] External Department Unsolicited Chidi Daniel, DO 01/20/2025bstract [facility] [address] [facility] [address] Vivian Osuna MA 01/20/2025External Result Encounter [facility] External Department Unsolicited Chidi Daniel, DO 01/20/2025External Result Encounter [facility] External Department Unsolicited Chidi Daniel, DO 01/20/2025External Result Encounter [facility]OMS External Department Unsolicited Chidi Daniel, DO 01/17/2025 9:50 AM EDTOffice Visit [facility] [address] [address] [place] [address] Chidi Daniel, DO Symptomatic menopausal or female climacteric states; Hot flashes; Weight gain; Hormone spgeegzv58/21/2025amboo flowsheet [facility] [address] [place] [address] Chidi Daniel, DO 01/12/2025Travelfrom Last 3 Months Family History Medical HistoryRelationNameCommentsHeart diseaseFatherHypertensionFatherDiabetes MotherRelationNameStatusCommentsFatherDeceasedMotherAlive Social History Tobacco UseTypesPacks/DayYears UsedDateSmoking Tobacco: Unknown Tobacco Cessation:Counseling Given: Yes Alcohol UseStandard Drinks/WeekCommentsYes1 (1 standard drink = 0.6 oz pure alcohol)Caffeine intake: 1-2 cups per dayCommentsNoSex and Gender InformationValueDate RecordedSex Assigned at UymcmPaqlla33/07/2023 9:39 AM EDT Legal OlpGpxcpa54/15/2023 7:27 PM EDTGender KfezftllMmmvpr26/07/2023 9:39 AM EDT Sexual ZxxcuqnqxluGfahuwgw40/07/2023 9:39 AM EDT Last Filed Vital Signs Vital SignReadingTime TakenCommentsBlood Zzgilizg436/6803/21/2025 3:33 PM EST Brrho365303/21/2025 3:33 PM RPSXuqtqzvtfic67 ??C (98.6 ??F)03/21/2025 3:33 PM EST Respiratory Dkim926405/22/2024 3:33 PM ESTOxygen Hxtrslrjmy11%03/21/2025 3:33 PM ESTInhaled Oxygen Concentration--Bzbous97.4 kg (142 lb)03/21/2025 3:33 PM EST Xeadqr798.9 cm (5' 1 )01/17/2025 10:19 AM EDTBody Mass Index26.8301/17/2025 10:19 AM EDT Plan of Treatment Health MaintenanceDue DateLast DoneCommentsCT Vdeyljyifzei19/05/1974Colonoscopy 1973Colorectal Cancer Takqmzbme01/05/1974FIT-DNA1973FIT1973 FOBT04/03/19735873Vhardrkwanqko22/05/8122Klfvgctui36/16/202411/, 06/06/2020, 05/26/2019, Additional history existsHPV/Aqkley96/28/574537/3Cervical Cancer Pfysfxnfu53/19/2028Pap Smear, 12/04/2022, 10/31/2021 Influenza AsopreuIhazhiedl67/22/2025, 12/14/2023, 02/09/2022, Additional history existsPneumococcal Vaccine: Pediatrics (0 to 5 Years) and At-Risk Patients (6 to 64 Years)Aged OutNo longer eligible based on patient's age to complete this topic Procedures Procedure NamePriorityDate/TimeAssociated DiagnosisCommentsRAPID DNA COVID Ozwxoza6203/21/2025 4:12 PM EST Pharyngitis, unspecified etiology STREP DNA KCQLEKaoxnya60/23/2025 4:12 PM EST Pharyngitis, unspecified etiology INFLUENZA DNA MPKKKVzqijgr87/23/2025 4:11 PM EST Pharyngitis, unspecified etiology IGP,APTIMA HPV,AGE LUEZQynxqpk13/19/2025 1:30 PM EST PAP TEST, DPTBLGMYVxvvrzv01/19/2025 12:00 AM ESTT3, DWLIFYQYbdnaem06/24/2025 10:04 AM EDT EAEJRKROmvqjvj06/24/2025 10:04 AM EDT TESTOSTERONE FREE AND VNZPGXykzzkn55/24/2025 10:04 AM EDT QVJYBKQRZMVOCEagonnw10/24/2025 10:04 AM EDT SEROTONIN XKOCCZwhzzxb27/24/2025 10:04 AM EDT VITAMIN D 1,25 GRYELJQHKNorgtbh61/24/2025 10:04 AM EDT QHYHRSDUSBilcocb70/24/2025 10:04 AM EDT C-AWPFAFQJzdgcgg14/24/2025 10:04 AM EDT DEHYDROEPIANDROSTERONE UBHGFBOUdvrerd94/24/2025 10:04 AM EDT QBFGCRIQHLCMAljtfgz71/24/2025 10:04 AM EDT SEX HORMONE BINDING KDKKBNCEGzghmew58/24/2025 10:04 AM EDT THYROID PEROXIDASE WFTXXYLNTNFoiuevk34/24/2025 10:04 AM EDT KGZCTCYEukeufg99/24/2025 10:04 AM EDT HEMOGLOBIN A1C WITH PKMNpgqiuc96/24/2025 10:04 AM EDT KZJKKPOJEiuosrr89/24/2025 10:04 AM EDT T4, RFSYDspoqri68/24/2025 10:04 AM EDT AHZJepwwth37/24/2025 10:04 AM EDT T4 (THYROXINE), XPMITNosjfpr01/24/2025 10:04 AM EDT CORTISOL, HROEJEhhqera70/24/2025 10:04 AM EDT T3, LWEAFnbszjn46/24/2025 10:04 AM EDT FSXSAQPNciuzoy52/24/2025 10:04 AM EDT THINPREP PAP AND HPV MRNA E6/E7 W/RFL HPV 16,18/62Memwmco48/28/2023 4:10 PM EDT Well woman exam with routine gynecological exam from Last 3 Months or Most Recently Relevant to Health Maintenance Results * STREP DNA PROBE (03/21/2025 4:12 PM EST)ComponentValueRef RangeTest Method Analysis TimePerformed AtPathologist SignatureRESULTNegativeNegativeSpecimen (Source)Anatomical Location / LateralityCollection Method / VolumeCollection TimeReceived NdseSnckjw35/23/2025 4:12 PM EST Narrative Authorizing ProviderResult TypeResult StatusAnthmarva Whitfield DOPOINT OF CARE TEST ENTER/EDIT ORDERABLESFinal Result * RAPID DNA COVID (03/21/2025 4:12 PM EST)ComponentValueRef RangeTest Method Analysis TimePerformed AtPathologist SignatureCOVID-19 NAATNegativeNegative Specimen (Source)Anatomical Location / LateralityCollection Method / Volume Collection TimeReceived MdwkTgwiz85/23/2025 4:12 PM EST Narrative Authorizing ProviderResult TypeResult StatusAnthmarva Whitfield DOPOINT OF CARE TEST ENTER/EDIT ORDERABLESFinal Result * INFLUENZA DNA PROBE (03/21/2025 4:11 PM EST)ComponentValueRef RangeTest Method Analysis TimePerformed AtPathologist SignatureINFLUENZA ANegativeNegative INFLUENZA BNegativeNegativeSpecimen (Source)Anatomical Location / Laterality Collection Method / VolumeCollection TimeReceived TekuElitw04/23/2025 4:11 PM EST Narrative Authorizing ProviderResult TypeResult StatusSavage Whitfield DOPOINT OF CARE TEST ENTER/EDIT ORDERABLESFinal Result * IGP,APTIMA HPV,AGE GDLN (02/15/2025 1:30 PM EST)ComponentValueRef RangeTest MethodAnalysis TimePerformed AtPathologist SignatureAGE GDLN ACOG TESTINGNote. TBHComment: ?? TESTS ? RESULT ??FLAG ??UNITS ?REF RANGE ??LAB ?? Clinician Provided Cytology Information ?? Source.............Cervix;Endocervix ?? No. of containers..01 ThinPrep Vial Age Algo ACOG Barbara... ??30-65 ? 01 ?FLAG LEGEND: ?L-Low Normal,H-High Normal,LL-Alert Low,HH-Alert High <-Panic Low,>-Panic High,A-Abnormal,AA-Critical Abnormal Performed at: 01 =G ?[facility] ?? [address] [place] ??[phone] ?? Radha Donald MD, IGP, APTIMA HPV, RFX 16/18,45Note.TBHComment: ?? TESTS ? RESULT ??FLAG ??UNITS ?REF RANGE ??LAB DIAGNOSIS: ?02 ?? NEGATIVE FOR INTRAEPITHELIAL LESION OR MALIGNANCY. ?? CELLULAR CHANGES ASSOCIATED WITH INFLAMMATION ARE PRESENT. Specimen adequacy: ?02 ?? Satisfactory for evaluation. ??Endocervical and/or squamous metaplastic ?? cells (endocervical component) are present. Performed by: ? 02 ?? Daksha Sandoval, Rating Clerk (ASCP) . ? 02 Note: ? Note ?02 ?? The Pap smear is a screening test designed to aid in the ?? detection of premalignant and malignant conditions of the ?? uterine cervix. ??It is not a diagnostic procedure and ?? should not be used as the sole means of detecting cervical ?? cancer. ??Both false-positive and false-negative reports do ?? occur. Test Methodology: ? Note ?02 ?? This liquid based ThinPrep(R) pap test was interpreted ?? using the GetFresh(R) Genius(TM) Cervical Algorithm whole ?? slide imaging system. HPV Genotype Reflex ?? Note ?02 ?? Criteria not met, HPV Genotype not performed. ?FLAG LEGEND: ?L-Low Normal,H-High Normal,LL-Alert Low,HH-Alert High <-Panic Low,>-Panic High,A-Abnormal,AA-Critical Abnormal Performed at: 02 WB [facility] ?? [address] [place], [place] ??[address] ?? Radha Donald MD, HPV APTIMANegativeNegativeTBHComment: This nucleic acid amplification test detects fourteen high- risk HPV types (16,18,31,33,35,39,45,51,52,56,58,59,66,68) without differentiation. Performed at: ??=G - [facility] [address] ??[id number] Green Coffee Blender: Radha Donald MD, Phone: ??[phone] Performed at: ??WB - [facility] ??[id number] Green Coffee Blender: Radha Donald MD, Phone: ??[phone] Specimen (Source)Anatomical Location / LateralityCollection Method / Volume Collection TimeReceived Time02/15/2025 1:30 PM EST02/15/2025 9:06 PM EST Narrative [facility] - 02/20/2025 12:08 PM EST BRUSH-SPATULA CERVIX ENDOCERVIX Authorizing ProviderResult TypeResult StatusCorey María DOLAB BLOOD ORDERABLES Final ResultPerforming OrganizationAddressCity/State/ZIP CodePhone Number [facility] * PAP TEST, EXTERNAL (02/15/2025 12:00 AM EST) Narrative Authorizing ProviderResult TypeResult StatusCorey María DOLAB CYTOLOGY ORDERABLESFinal ResultPerforming OrganizationAddressCity/State/ZIP CodePhone Number EXTERNAL LAB * DEHYDROEPIANDROSTERONE SULFATE (01/20/2025 10:04 AM EDT)ComponentValueRef RangeTest MethodAnalysis TimePerformed AtPathologist Signature DEHYDROEPIANDROSTERONE YWWGQNA07.641.2 - 243.7 ug/dL01/21/2025 3:36 AM EDT Evelynn (Source)Anatomical Location / LateralityCollection Method / VolumeCollection TimeReceived TimeOtherTopography unknown / Uuailsx5101/20/2025 10:04 AM EDT1 10:04 AM EDT Narrative Authorizing ProviderResult TypeResult StatusCorey María DOLAB BLOOD ORDERABLES Final ResultPerforming OrganizationAddressCity/State/ZIP CodePhone Number [address] [address], * Hemoglobin a1c with eag (01/20/2025 10:04 AM EDT)ComponentValueRef RangeTest MethodAnalysis TimePerformed AtPathologist SignatureHEMOGLOBIN A1C5.34.3 - 5.6 %01/20/2025 11:54 AM [facility] CtrComment: Increased risk for diabetes: 5.7 - 6.4 diabetes: >6.4 glycemic control for adults with diabetes: <7.0 ESTIMATED AVERAGE NOQKLXU883qo/dL01/20/2025 11:54 AM [facility] CtrSpecimen (Source)Anatomical Location / LateralityCollection Method / VolumeCollection TimeReceived TimeBlood (Blood)01/20/2025 10:04 AM EDT1 10:04 AM EDT Narrative Authorizing ProviderResult TypeResult StatusCorey María DOLAB BLOOD ORDERABLES Final ResultPerforming OrganizationAddAllegheny General Hospitalty/State/[facility] CodePhone Number [facility] [address] [place] [address], [facility] [address] [place] [address] * Sex hormone binding globulin (01/20/2025 10:04 AM EDT)ComponentValueRef Range Test MethodAnalysis TimePerformed AtPathologist SignatureSEX HORMONE BINDING YFLTGCAZ79.317.3 - 125.010 3:36 AM EDTFIRELANDSComment: Performed at: ??CB - [facility] [address] ??[id number] Green Coffee Blender: Robb Rodriguez PhD, Phone: ??[phone] Specimen (Source)Anatomical Location / LateralityCollection Method / Volume Collection TimeReceived TimeOtherTopography unknown / Itojedq0601/20/2025 10:04 AM EDT1 10:04 AM EDT Narrative Authorizing ProviderResult TypeResult StatusCorey María DOLAB BLOOD ORDERABLES Final ResultPerforming OrganizationAddressCity/State/ZIP CodePhone Number [facility] [address] [place] [address], * Thyroid peroxidase antibody (01/20/2025 10:04 AM EDT)ComponentValueRef Range Test MethodAnalysis TimePerformed AtPathologist SignatureTHYROID PEROXIDASE UFBKUWUPQJ181 - 3410 3:36 AM EDTFIRELANDSSpecimen (Source)Anatomical Location / LateralityCollection Method / VolumeCollection TimeReceived Time OtherTopography unknown / Dyfedna8101/20/2025 10:04 AM EDT1 10:04 AM EDT Narrative Authorizing ProviderResult TypeResult StatusCorey María DOLAB BLOOD ORDERABLES Final ResultPerforming OrganizationAddressty/State/[facility] CodePhone Number [facility] [address] [place] [address], * Insulin, fasting (01/20/2025 10:04 AM EDT)ComponentValueRef RangeTest Method Analysis TimePerformed AtPathologist SignatureINSULIN6.42.6 - 24.9 u[iU]/mL 01/21/2025 3:07 AM EDTFIRELANDSComment: Performed at: ??CB - [facility] [place] [address] [facility], [place], [place] ??[id number] Green Coffee Blender: Robb Rodriguez PhD, Phone: ??[phone] Specimen (Source)Anatomical Location / LateralityCollection Method / Volume Collection TimeReceived TimeOtherTopography unknown / Lualwjn8201/20/2025 10:04 AM EDT1 10:04 AM EDT Narrative Authorizing ProviderResult TypeResult StatusCorey María DOLAB BLOOD ORDERABLES Final ResultPerforming OrganizationAddressCity/State/ZIP CodePhone Number [facility] [address] [facility] [place] [address], * Estrone (01/20/2025 10:04 AM EDT)ComponentValueRef RangeTest MethodAnalysis TimePerformed AtPathologist SignatureESTRONE, SERUM26. pg/mL01/24/2025 2:36 PM EDTFIRELANDSComment: ?Range ?Adult (Premenopausal) ?27 - 231 ?Menstrual Cycle (1-10 days) ?19 - 149 ?Menstrual Cycle (11-20 days) ?? 32 - 176 ?Menstrual Cycle (21-30 days) ?? 37 - 200 ?Adult (Postmenopausal) ?0 - 125 Performed at: ??BN - [facility] ??[id number] Green Coffee Blender: Yue Mcclure MD, Phone: ??[phone] Specimen (Source)Anatomical Location / LateralityCollection Method / Volume Collection TimeReceived TimeOtherTopography unknown / Getkegp2501/20/2025 10:04 AM EDT1 10:04 AM EDT Narrative Authorizing ProviderResult TypeResult StatusCorey María DOLAB BLOOD ORDERABLES Final ResultPerforming OrganizationAddressty/State/ZIP CodePhone Number [facility] [address], * Vitamin D 1,25 dihydroxy (01/20/2025 10:04 AM EDT)ComponentValueRef RangeTest MethodAnalysis TimePerformed AtPathologist Signature1,25 DIHYDROXY VIT D MUZXBPXMD15.224.8 - 81.5 pg/mL01/23/2025 11:08 AM EDTFIRELANDSComment: Performed at: ?? - [facility] [address] ??[id number] Green Coffee Blender: Yue Mcclure MD, Phone: ??[phone] Specimen (Source)Anatomical Location / LateralityCollection Method / Volume Collection TimeReceived TimeOtherTopography unknown / Cmiqcsj6101/20/2025 10:04 AM EDT1 10:04 AM EDT Narrative Authorizing ProviderResult TypeResult StatusCorey María DOLAB BLOOD ORDERABLES Final ResultPerforming OrganizationAddAllegheny General Hospitalty/State/ZIP CodePhone Number [facility] [address] [place] [address], * Thyroglobulin (01/20/2025 10:04 AM EDT)ComponentValueRef RangeTest Method Analysis TimePerformed AtPathologist SignatureANTITHYROGLOBULIN AB<1.00.0 - 0.91 9:09 AM EDTFIRELANDSComment: Thyroglobulin Antibody measured by [facility] [place] Methodology It should be noted that the presence of thyroglobulin antibodies may not be pathogenic nor diagnostic, especially at very low levels. The assay wire border assembler has found that four percent of individuals without evidence of thyroid disease or autoimmunity will have positive TgAb levels up to 4 IU/mL. THYROGLOBULIN BY IMA6.01.5 - 38.5 ng/mL01/24/2025 9:09 AM EDTFIRELANDSComment: According to the National Academy of Clinical Biochemistry, the reference interval for Thyroglobulin (TG) should be related to euthyroid patients and not for patients who underwent thyroidectomy. TG reference intervals for these patients depend on the residual mass of the thyroid tissue left after surgery. Establishing a post-operative baseline is recommended. The assay limit of quantitation is 0.1 ng/mL Thyroglobulin measured by [facility] [place] Immunometric Assay Performed at: ?? - [facility] [address] [facility], [place], [place] ??[id number] Green Coffee Blender: Robb Rodriguez PhD, Phone: ??[phone] Specimen (Source)Anatomical Location / LateralityCollection Method / Volume Collection TimeReceived TimeOtherTopography unknown / Zoyyhtx3401/20/2025 10:04 AM EDT1 10:04 AM EDT Narrative Authorizing ProviderResult TypeResult StatusCorey María DOLAB BLOOD ORDERABLES Final ResultPerforming OrganizationAddressCity/State/[facility] CodePhone Number [facility] [address] [place] [address], * Progesterone (01/20/2025 10:04 AM EDT)ComponentValueRef RangeTest Method Analysis TimePerformed AtPathologist SignaturePROGESTERONE0.1. ng/mL01/21/2025 3:36 AM EDTFIRELANDSComment: ? Follicular phase ? 0.1 - ?? 0.9 ? Luteal phase ? 1.8 - ??23.9 ? Ovulation phase ?0.1 - ??12.0 ?First trimester ?11.0 - ??44.3 ?Second trimester ?? 25.4 - ??83.3 ?Third trimester ?58.7 - 214.0 ? Postmenopausal ? 0.0 - ?? 0.1 Specimen (Source)Anatomical Location / LateralityCollection Method / Volume Collection TimeReceived TimeOtherTopography unknown / Pnkrvwj7601/20/2025 10:04 AM EDT1 10:04 AM EDT Narrative Authorizing ProviderResult TypeResult StatusCorey María DOLAB BLOOD ORDERABLES Final ResultPerforming OrganizationAddressty/State/ZIP CodePhone Number [facility] [address] [place] [address], [place] * Estradiol (01/20/2025 10:04 AM EDT)ComponentValueRef RangeTest MethodAnalysis TimePerformed AtPathologist PzovqujzaMKGACTINE87.0. pg/mL01/21/2025 3:36 AM EDTFIRELANDSComment: ? Adult Female ? Range ?Follicular phase ? 12.5 - 166.0 ?Ovulation phase ?85.8 - 498.0 ?Luteal phase ? 43.8 - 211.0 Postmenopausal <6.0 - 54.7 ? 1st trimester 215.0 - >4300.0 Isha ECLIA methodology Specimen (Source)Anatomical Location / LateralityCollection Method / Volume Collection TimeReceived TimeOtherTopography unknown / Oqjbmot4001/20/2025 10:04 AM EDT1 10:04 AM EDT Narrative Authorizing ProviderResult TypeResult StatusCorey María DOLAB BLOOD ORDERABLES Final ResultPerforming OrganizationAddLat[facility] CodePhone Number [facility] [address] [place] [address], [place] * C-peptide (01/20/2025 10:04 AM EDT)ComponentValueRef RangeTest MethodAnalysis TimePerformed AtPathologist SignatureC-PEPTIDE2.01.1 - 4.4 ng/mL01/21/2025 3:36 AM EDTFIRELANDSComment:C-Peptide reference interval is for fasting patients.Specimen (Source)Anatomical Location / LateralityCollection Method / VolumeCollection TimeReceived TimeOtherTopography unknown / Ksrnukr6301/20/2025 10:04 AM EDT1 10:04 AM EDT Narrative Authorizing ProviderResult TypeResult StatusCorey María DOLAB BLOOD ORDERABLES Final ResultPerforming OrganizationAddressty/[facility]townPhone Number [facility] [address] [place] [phone], * Testosterone, free, total (01/20/2025 10:04 AM EDT)ComponentValueRef RangeTest MethodAnalysis TimePerformed AtPathologist SignatureTESTOSTERONE,134 - 50 ng/dL01/24/2025 10:36 AM EDTFIRELANDSTESTOSTERONE,FREE0.90.0 - 4.2 pg/mL 01/24/2025 10:36 AM EDTFIRELANDSComment: Performed at: ??CB - [facility] [address] ??[id number] Green Coffee Blender: Robb Rodriguez PhD, Phone: ??[phone] Performed at: ?? - [facility] [address] ??[id number] Green Coffee Blender: Yue Mcclure MD, Phone: ??[phone] Specimen (Source)Anatomical Location / LateralityCollection Method / Volume Collection TimeReceived TimeOtherTopography unknown / Azvasic5201/20/2025 10:04 AM EDT1 10:04 AM EDT Narrative Authorizing ProviderResult TypeResult StatusCorey María DOLAB BLOOD ORDERABLES Final ResultPerforming OrganizationAddressty/State/[facility] CodePhone Number [facility] [address] [place] [phone], [place] * T3, reverse (01/20/2025 10:04 AM EDT)ComponentValueRef RangeTest Method Analysis TimePerformed AtPathologist SignatureTRIIODOTHYRONINE (T3) REVERSE 18.59.2 - 24.1 ng/dL01/25/2025 6:08 PM EDTFIREPEACEHEALTH SOUTHWEST MEDICAL CENTERComment: This test was developed and its performance characteristics determined by [facility]. It has not been cleared or approved by the Food and Drug Administration. Performed at: ?? - [facility] [address] ??[id number] Green Coffee Blender: Yue Mcclure MD, Phone: ??[phone] Specimen (Source)Anatomical Location / LateralityCollection Method / Volume Collection TimeReceived TimeOtherTopography unknown / Llspuib4701/20/2025 10:04 AM EDT1 10:04 AM EDT Narrative Authorizing ProviderResult TypeResult StatusCorey María DOLAB BLOOD ORDERABLES Final ResultPerforming OrganizationAddressCity/State/[place] [address], * T3, free (01/20/2025 10:04 AM EDT)ComponentValueRef RangeTest MethodAnalysis TimePerformed AtPathologist SignatureTRIIODOTHYRONINE (T3) FREE3.012.50 - 3.90 pg/mL01/20/2025 11:16 AM [facility] CtrSpecimen (Source) Anatomical Location / LateralityCollection Method / VolumeCollection Time Received TimeOtherTopography unknown / Eehaeol1901/20/2025 10:04 AM EDT 01/20/2025 10:04 AM EDT Narrative Authorizing ProviderResult TypeResult StatusCorey María DOLAB BLOOD ORDERABLES Final ResultPerforming OrganizationAddLat[facility]/State/[place] [address], [facility] [address] [place] [address] * TSH (01/20/2025 10:04 AM EDT)ComponentValueRef RangeTest MethodAnalysis Time Performed AtPathologist SignatureTHYROID STIMULATING HORMONE1.640.45 - 5.33 u[iU]/mL01/20/2025 11:22 AM [facility] CtrSpecimen (Source) Anatomical Location / LateralityCollection Method / VolumeCollection Time Received TimeOtherTopography unknown / Dtfkpjk9501/20/2025 10:04 AM EDT 01/20/2025 10:04 AM EDT Narrative Authorizing ProviderResult TypeResult StatusCorey María DOLAB BLOOD ORDERABLES Final ResultPerforming OrganizationAddressty/State/ZIP CodePhone Number [facility] [address] [place] [address], [facility] [address] [place] [address] * (ABNORMAL) T4, free (01/20/2025 10:04 AM EDT)ComponentValueRef RangeTest MethodAnalysis TimePerformed AtPathologist SignatureFREE T4 (FREE THYROXINE) 0.51(L)0.61 - 1.12 ng/dL01/20/2025 11:26 AM [facility] Specimen (Source)Anatomical Location / LateralityCollection Method / Volume Collection TimeReceived TimeOtherTopography unknown / Hfrzkmq3301/20/2025 10:04 AM EDT1 10:04 AM EDT Narrative Authorizing ProviderResult TypeResult StatusCorey María DOLAB BLOOD ORDERABLES Final ResultPerforming OrganizationAddressCity/State/ZIP CodePhone Number [facility] [address] [place] [address], [facility] [address] [place] [address] * T4 (01/20/2025 10:04 AM EDT)ComponentValueRef RangeTest MethodAnalysis Time Performed AtPathologist SignatureTHYROXINE (T4) TOTAL6.115.39 - 11.82 ug/dL 01/20/2025 11:21 AM [facility] CtrSpecimen (Source) Anatomical Location / LateralityCollection Method / VolumeCollection Time Received TimeOtherTopography unknown / Mpsrmka7901/20/2025 10:04 AM EDT 01/20/2025 10:04 AM EDT Narrative Authorizing ProviderResult TypeResult StatusCorey María DOLAB BLOOD ORDERABLES Final ResultPerforming OrganizationAddressty/State/ZIP CodePhone Number [facility] [address] [place] [address], [facility] [address] [place] [address] * Serotonin serum (01/20/2025 10:04 AM EDT)ComponentValueRef RangeTest Method Analysis TimePerformed AtPathologist SignatureSEROTONIN, HSRHX17083 - 207 ng/mL01/24/2025 8:36 AM EDTFIREPEACEHEALTH SOUTHWEST MEDICAL CENTERComment: This test was developed and its performance characteristics determined by [facility]. It has not been cleared or approved by the Food and Drug Administration. Performed at: ?? - [facility] [address] ??[id number] Green Coffee Blender: Yue Mcclure MD, Phone: ??[phone] Specimen (Source)Anatomical Location / LateralityCollection Method / Volume Collection TimeReceived TimeOtherTopography unknown / Ycppqul8001/20/2025 10:04 AM EDT1 10:04 AM EDT Narrative Authorizing ProviderResult TypeResult StatusCorey María DOLAB BLOOD ORDERABLES Final ResultPerforming OrganizationAddressCity/State/ZIP CodePhone Number [facility] [address] [place] [phone], * Glucose, random (01/20/2025 10:04 AM EDT)ComponentValueRef RangeTest Method Analysis TimePerformed AtPathologist YercpaksfWjyxnms4786 - 100 mg/dL 01/20/2025 11:11 AM [facility] CtrComment: Random Glucose Reference Range is dependent on time and content of last meal. Glucose of more than 200 mg/dL in a nonstressed, ambulatory subject supports the diagnosis of Diabetes Mellitus. ADA recommended reference range Specimen (Source)Anatomical Location / LateralityCollection Method / Volume Collection TimeReceived TimeOtherTopography unknown / Enjhabg5201/20/2025 10:04 AM EDT1 10:04 AM EDT Narrative Authorizing ProviderResult TypeResult StatusCorey María DOLAB BLOOD ORDERABLES Final ResultPerforming OrganizationAddressty/State/[facility] CodePhone Number [facility] [address] [place] [phone], [facility] [address] [place] [address] * Ferritin (01/20/2025 10:04 AM EDT)ComponentValueRef RangeTest MethodAnalysis TimePerformed AtPathologist BphwucqikFDCZEYJX80.011.0 - 306.8 ng/mL01/20/2025 11:28 AM [facility] CtrSpecimen (Source)Anatomical Location / LateralityCollection Method / VolumeCollection TimeReceived TimeOther Topography unknown / Bchlizd0201/20/2025 10:04 AM EDT1 10:04 AM EDT Narrative Authorizing ProviderResult TypeResult StatusCoreangelina Cormiero DOLAB BLOOD ORDERABLES Final ResultPerforming OrganizationAddressCity/State/ZIP CodePhone Number [facility] [address] [facility] [place] [address], [facility] [address] [place] [address] * Cortisol (01/20/2025 10:04 AM EDT)ComponentValueRef RangeTest MethodAnalysis TimePerformed AtPathologist SignatureCORTISOL9.0ug/dL01/20/2025 11:20 AM EDT [facility] CtrComment: Reference range: ?AM 6 - 24 ug/dl PM <10 ug/dl [facility] wire border assembler and method: RACHELL UNICEL DXI, POLYCLONAL ANTIBODY CORTISOL ASSAY. Specimen (Source)Anatomical Location / LateralityCollection Method / Volume Collection TimeReceived TimeOtherTopography unknown / Lrvydcv0401/20/2025 10:04 AM EDT1 10:04 AM EDT Narrative Authorizing ProviderResult TypeResult StatusCorey María DOLAB BLOOD ORDERABLES Final ResultPerforming OrganizationAddressCity/State/ZIP CodePhone Number [address] [place] [address], [facility] [address] [place] [address] * THINPREP PAP AND HPV MRNA E6/E7 W/RFL HPV 16,18/45 (12/25/2022 4:10 PM EDT) Narrative Authorizing ProviderResult TypeResult StatusAmy David PALAB BLOOD ORDERABLES Final ResultPerforming OrganizationAddressCity/State/ZIP CodePhone Number EXTERNAL LAB from Last 3 Months or Most Recently Relevant to Health Maintenance Insurance Care Teams Team MemberRelationshipSpecialtyStart DateEnd Date Shu Kitchen MD [address] [place] [phone] PCP - GeneralFamily Medicine12/04/22
--- OUTSIDE RECORDS SUMMARY | 2025-03-23 13:04 | XMS_ITS | Clinical Summary ---
Author Organization [facility] Address [address] [place] [address] Care Team Providers Care Aids Counselor Name Role Phone Unavailable Primary Care Provider Unavailabl e Social History Tobacco UseTypesPacks/DayYears UsedDateSmoking Tobacco: Never Assessed CommentsUnknownSex and Gender InformationValueDate RecordedSex Assigned at Not on fileLegal AkwEdrqui65/26/2014 3:37 AM EDTGender IdentityNot on fileSexual OrientationNot on file Plan of Treatment Not on file
--- OUTSIDE RECORDS SUMMARY | 2025-03-23 13:04 | XMS_ITS | Clinical Summary ---
Author Organization [facility] Address [address] [place] [address] Phone Care Team Providers Care Brewery Representative Name Role Phone Shu Kitchen MD Primary Care Provider [phone] Allergies Active AllergyReactionsCriticalityNoted DateCommentsAmoxicillinGI UpsetMedium 08/06/20231649CoomzijuukhqxxhTdngkYdj21/17/2024 Teeth gtinding IpqkeeisoithvvgdTsawhBdj44/17/2024 Teeth grinding Medications MedicationSigDispense QuantityRefillsLast FilledStart DateEnd DateStatus calcium carbonate/vitamin D3 (CALCIUM 500 + D, D3, ORAL) Take 1 tablet by mouth once daily.Active multivit-min/ferrous fumarate (MULTI VITAMIN ORAL) Take 1 tablet by mouth once daily.Active turmeric, bulk, 95 % powder Take 1 capsule by mouth once daily.Active cholecalciferol (Vitamin D-3) 125 MCG (5000 UT) capsule Take 1 capsule (125 mcg) by mouth once daily.Active ganga cbba-zdiclbac-uozruqpax ac (Linwood Oil) 1,000 mg capsule Take 1 capsule by mouth once daily.Active magnesium oxide (Mag-Ox) 400 mg (241.3 mg magnesium) tablet Take 1 tablet (400 mg) by mouth once daily.Active thyroid, pork, ([place] Thyroid) 90 mg tablet Take 1 tablet (90 mg) by mouth once daily.1Active metoprolol succinate XL (Toprol-XL) 25 mg 24 hr tablet Indications:PalpitationsTAKE 1 TABLET BY MOUTH EVERY DAY 90 tablet 5Active saccharomyces boulardii (Florastor) 250 mg capsule Take 1 capsule (250 mg) by mouth 2 times a day.Active loratadine (Claritin) 10 mg tablet Take 1 tablet (10 mg) by mouth once daily.Active famotidine (Pepcid) 20 mg tablet Take 1 tablet (20 mg) by mouth once daily.Active omeprazole (PriLOSEC) [address] capsule Indications:Gastroesophageal reflux disease, unspecified whether esophagitis presentTake 1 capsule (20 mg) by mouth once daily in the morning. Take before meals. Do not crush or chew. 30 capsule 604/5007/12/2025ctive Active Problems ProblemNoted DateDiagnosed DateBMI 25.0-25.9,adult07/12/2024Never smoked tobacco 07/12/2024bnormal CT scan, heart04/15/2023scending aorta cqtyveeh46/17/2024 Bicuspid aortic valve04/15/2023hest ovxidinntx39/17/6370Syfjsuant94/17/2024 Motion lmrsmuik91/17/2947Mrozdtdxjxwo28/17/2024Short of breath on exertion 04/15/2023 Resolved Problems ProblemNoted DateDiagnosed DateResolved DateBMI 23.0-23.9, adult08/06/2023 07/12/2024 Immunizations ImmunizationAdministration DatesNext DueInfluenza, Nlmzshnkgsg49/01/2020, 12/28/2017Influenza, seasonal, ytmiankxgi37/07/2021Moderna SARS-CoV-2 Oxwaduervnq03/07/2021,06/06/2020fizer Purple Cap QVWF-VcA-785/03/2021 Family History Medical HistoryRelationNameCommentsCancerFathermiFatherDiabetesMotherRelation NameStatusCommentsFatherMother Social History Tobacco UseTypesPacks/DayYears UsedDateSmoking Tobacco: NeverSmokeless Tobacco: Never Tobacco Cessation:Counseling Given: Not Answered Alcohol UseStandard Drinks/WeekCommentsYes4 (1 standard drink = 0.6 oz pure alcohol)PHQ-2AnswerDate RecordedPatient Health Questionnaire-2 Uczrl226 CommentsUnknownSex and Gender InformationValueDate RecordedSex Assigned at UgpbaAhugzc49/ 3:32 PM ESTLegal RfsDnahft48/26/2022 5:14 AM ESTGender WuvrpoaoJejffw54/13/2024 3:32 PM ESTSexual OqtxwjmaubtOzeblmir82/13/2024 3:32 PM EST Last Filed Vital Signs Vital SignReadingTime TakenCommentsBlood Wiuydznw780/76007/12/2024 12:05 PM EDT Gtkll402807/12/2024 12:05 PM EDTTemperature--Respiratory Rate--Oxygen Saturation-- Inhaled Oxygen Concentration--Tejhkk73 kg (139 lb)07/12/2024 12:05 PM EDTHeight 156.2 cm (5' 1.5 )07/12/2024 12:05 PM EDTBody Mass Index25.8407/12/2024 12:05 PM EDT Plan of Treatment DateTypeDepartmentCare Team (Latest Contact Info)Lcjcrsinfpg65/26/2026 1:[address] [facility] [address] [place] [phone] 07/13/2025 11:00 AM EDTOffice Visit at [facility] [address] [place] [phone] Rickey Granados, [address] [facility], [address] [address] Health MaintenanceDue DateLast DoneCommentsCT Fpisjtnwncap67/05/1974FIT-DNA (Cologuard)1973FIT1973HIV Ebcehfhlz44/05/1974Lipid Panel1973 Xllwwzqgcdnav99/05/1974TSH Level1973MMR Vaccines (1 of 1 - Standard series)1974Diabetes Ufyxvyrvh72/05/1992Hepatitis C Vhsdwaczk01/05/1992 Hepatitis A Vaccines (1 of 2 - Risk 2-dose series)1992Hepatitis B Vaccines (1 of 3 - 19+ 3-dose series)1992Pneumococcal Vaccine (1 of 2 - PCV) 1992HPV/Npjari5304/03/1994Zoster Vaccines (1 of 2)2023Yearly Adult Kaliprrr18///09/20229796Euypexhpt02/16/202411/, 02/12/2023, 1COVID-19 Vaccine (5 - season)/, 03/01/2021, 07/04/2020, Additional history existsInfluenza Vaccine (#1)/, 02/09/2022, 12/28/2021, Additional history existsCervical Cancer Screening 12/04/2025Pap Smear/3DTaP/Tdap/Td Vaccines (3 - Td or Tdap) 08/24//, 08/24/20206627Cvzsltphbeg27/05/203412/4Colorectal Cancer Umewacoow55/05/2034HIB VaccinesAged OutNo longer eligible based on patient's age to complete this topicHPV VaccinesAged OutNo longer eligible based on patient's age to complete this topicIPV VaccinesAged OutNo longer eligible based on patient's age to complete this topicMeningococcal VaccineAged OutNo longer eligible based on patient's age to complete this topicRotavirus VaccinesAged Out No longer eligible based on patient's age to complete this topic Insurance * Guarantor: Pedro Amaya TypeRelation to PatientDate of BirthPhoneBilling AddressPersonal/KoehtsKpmx41/05/1976 [address] [address] Care Teams Team MemberRelationshipSpecialtyStart DateEnd Date Shu Kitchen MD [address] [place] [address] [address] [place] [phone] [facility]03/03/19
--- OUTSIDE RECORDS SUMMARY | 2025-03-23 13:04 | XMS_ITS | Clinical Summary ---
Author Organization [facility] Address [address] [place], [place] [id number] Care Team Providers Care Qi Specialist Name Role Phone Shu Kitchen MD Primary Care Provider [phone] Allergies Active AllergyReactionsCriticalityNoted DateCommentsProchlorperazine Edisylate Yoopsim0110/24/2013PhenothiazinesOther: See Ipcbjuyd37/15/2014 Locked jaw and teeth grinding Medications MedicationSigDispense QuantityRefillsLast FilledStart DateEnd DateStatus loratadine 10 mg cap Take by mouth.Active magnesium oxide 400 mg magnesium tab Take by mouth.Active Multivitamin capsule Take 1 capsule by mouth once daily.Active TURMERIC ORAL 03/30/2019Active COLLAGEN MISC 03/30/2019Active APPLE CIDER VINEGAR ORAL 03/30/2019Active cholecalciferol (VITAMIN D-3) 5,000 unit tab Take 1,000 Units by mouth once daily. 12/29/2019Active Sharron Pqeo-Ozyrszil-Lqmcqfdtk Ac 1,000 mg cap 09/28/2019Active cranberry fruit extract (CRANBERRY EXTRACT ORAL) 12/29/2019Active CALCIUM ORAL Take by mouth every 24 hours.Active ARMOUR THYROID 90 mg tablet Indications:Hypothyroidism (acquired)Take 1 tablet by mouth daily- skip thursday 90 tablet 5Active Active Problems ProblemNoted DateDiagnosed DateAMA (advanced maternal age) multigravida 35+ 04/07/2014Subclinical jkdfbophqaengf68/09/2015 Family History Medical HistoryRelationCommentsLung CancerFatherLung CancerMaternal Grandfather Cervical CancerMotherDiabetesMotherRelationStatusCommentsFatherDeceasedMaternal GrandfatherDeceasedMaternal GrandmotherDeceasedMotherAlivePaternal Grandfather DeceasedPaternal GrandmotherDeceased Social History Tobacco UseTypesPacks/DayYears UsedDateSmoking Tobacco: FormerCigarettes Smokeless Tobacco: Never Comments:Socially; Quit 1997 Alcohol UseStandard Drinks/WeekCommentsYes0 (1 standard drink = 0.6 oz pure alcohol)3-4 days a weekArea Deprivation IndexAnswerDate RecordedNational Score (1-100), lower number is lower zfqs899901/19/2024State Score (1-10), lower number is lower ebhb9294Data from: https://www.neighborhoodatlas.medicine.[facility].edu/. Last address used for soqperdgoja[address]01/19/2024CommentsNoSex and Gender InformationValueDate RecordedSex Assigned at WcmllMdytla00/03/2021 11:07 AM EST Legal NowJjgvki99/02/2012 7:34 AM ESTGender TikkewfuNgfcsi20/03/2021 11:07 AM ESTSexual LrutbbhpxlgLipnjoei77/03/2021 11:07 AM EST Last Filed Vital Signs Vital SignReadingTime TakenCommentsBlood Rwpvoifz905/6406 2:11 PM EDT Szrrd3130 2:11 PM MIBBkhohkmsglk35.8 ??C (98.2 ??F)12/12/2013 9:00 AM EDTRespiratory Zjce2102 2:11 PM EDTOxygen Saturation--Inhaled Oxygen Concentration--Qayhid80.3 kg (122 lb)06/06/2020 11:10 AM TQVYsnrit111.9 cm (5' 1 )06/06/2020 11:10 AM ESTBody Mass Index23.0503 11:10 AM EST Plan of Treatment DateTypeDepartmentCare Team (Latest Contact Info)Vibohoskmhu69/29/2026 3:40 PM EDTDistance Health Endocrinology [address], [place] [phone] Jose Brunson, DO [address] [place] [address] f/u here 1 year - virtual visit okHealth MaintenanceDue DateLast DoneComments Annual PCP Team Chronic Disease Visit1991Anxiety Xxequahjq68/05/1992 Depression Togzntxew16/05/1992HIV Pljxdpwgm09/05/1992Hepatitis C Screening 1991Hepatitis B Vaccine (1 of 3 - 19+ 3-dose series)1992Cervical Cancer Fmsfdvnmw59/05/1995CT Fnfvwkxaeirm39/05/2019Cologuard (FIT-DNA)2018 Amlgodskubp86/05/2019Colorectal Cancer Hasepozhc35/05/2019Fecal Occult Blood 2018Lipid Wudmdxlhb42/05/0936Siysvpiigopxa22/05/2019Pneumococcal Vaccine: 50+ (1 of 1 - PCV)2023Shingrix Vaccine (1 of 2)2023Mammogram Hsuwxzhec70, 06/06/2020, 05/26/2019, Additional history exists Covid-19 Vaccine ( - 2024- season)511/11/2023, 02/09/2022, 03/01/2021, Additional history existsInfluenza Vaccine (#1)509/, 02/09/2022, 12/28/2021, Additional history existsDiabetes Iwovyczqf95/07/2028 06/03/2024DTaP,Tdap,Td Vaccine (2 - Td or Tdap)SV Vaccine (1 - 1-dose 75+ series)2048 Procedures Procedure NamePriorityDate/TimeAssociated DiagnosisCommentsMAM SCREENING W TRAY Exmketj6702/12/2023 1:32 PM EST Fibrocystic breast changes, bilateral Dense breast from Last 3 Months or Most Recently Relevant to Health Maintenance Results * ADDIE SCREENING W TRAY (02/12/2023 1:32 PM EST)Anatomical RegionLaterality ModalityBreastOtherSpecimen (Source)Anatomical Location / LateralityCollection Method / VolumeCollection TimeReceived Time02/12/2023 1:32 PM EST Impressions 02/13/2023 11:12 PM EST IMPRESSION: NEGATIVE There is no mammographic evidence of malignancy. A 1 year screening mammogram is recommended. Ryan osorio/hannah:02/13/2023 23:11:23 Attending Technologist(s): RT Margi(R)(M), [facility] [place] Worker(s): Divya Rucker, [facility] letter sent: Normal over 40 Mammogram BI-RADS: 1 Negative Multiple national specialty organizations have released breast cancer screening guidelines for women at average risk for developing breast cancer - guidelines that are based on both evidence and opinion, yet differ on when to start and how often to screen for breast cancer. With representation from Breast Imaging, Internal Medicine, Women's Health, Family Medicine, and Medical/Surgical Oncology, the [facility] has carefully reviewed the data and reached the following consensus: 1) All women should engage in shared decision-making with their providers to decide when to start and how often to screen; 2) All women should have the opportunity to start screening mammography at age 40; 3) For women ages 45-55, we recommend annual screening mammograms; 4) For women ages 55 and over, we support both the transition from an annual to a biennial interval if this aligns more with patient's values and preferences, or continuation with annual screening; 5) All women should discuss with their providers when to stop screening mammograms. Decker Operator: Hannah Transcribe Date/Time: Feb 12 2023 ??1:11P Dictated by : RYAN ACKERMAN MD This examination was interpreted and the report reviewed and electronically signed by: RYAN ACKERMAN MD on Feb 13 2023 11:11PM ??EST Narrative 02/13/2023 11:12 PM EST * * *Final Report* * * DATE OF EXAM: Feb 12 2023 ??1:32PM ?? MCW ?? 0582 ??- ??ADDIE SCREENING W TRAY ??/ PROCEDURE REASON: multiple diagnoses ? * * * * Physician Interpretation * * * * RESULT: #[id number] - ADDIE SCREENING W TRAY BILATERAL DIGITAL SCREENING MAMMOGRAM TOMOSYNTHESIS WITH CAD: 02/12/2023 HISTORY: Multiple Diagnoses / Screening Mammogram-Patient reports NO symptoms. RESULT: TECHNIQUE: The study was acquired using full field digital technology and interpreted from soft copy. Digital Breast Tomosynthesis (DBT) images were obtained and used to assist in the interpretation of this examination. Current study was also evaluated with a Computer Aided Detection (CAD). Comparison is made to exams dated: 06/06/2020 mammogram, 05/26/2019 mammogram, 11/17/2018 mammogram - [facility], and 07/23/2018 mammogram. ??The breasts are heterogeneously dense, which may obscure small masses. No significant masses, calcifications, or other findings are seen in either breast. There has been no significant interval change. Procedure Note Provider, [facility] - 02/13/2023 * * *Final Report* * * DATE OF EXAM: Feb 12 2023 1:32PM [facility] [place] [facility] SCREENING W TRAY / PROCEDURE REASON: multiple diagnoses * * * * Physician Interpretation * * * * RESULT: #[id number] - ADDIE SCREENING W TRAY BILATERAL DIGITAL SCREENING MAMMOGRAM TOMOSYNTHESIS WITH CAD: 02/12/2023 HISTORY: Multiple Diagnoses / Screening Mammogram-Patient reports NO symptoms. RESULT: TECHNIQUE: The study was acquired using full field digital technology and interpreted from soft copy. Digital Breast Tomosynthesis (DBT) images were obtained and used to assist in the interpretation of this examination. Current study was also evaluated with a Computer Aided Detection (CAD). Comparison is made to exams dated: 06/06/2020 mammogram, 05/26/2019 mammogram, 11/17/2018 [facility], and 07/23/2018 mammogram. The breasts are heterogeneously dense, which may obscure small masses. No significant masses, calcifications, or other findings are seen in either breast. There has been no significant interval change. IMPRESSION IMPRESSION: NEGATIVE There is no mammographic evidence of malignancy. A 1 year screening mammogram is recommended. Ryan osorio/hannah:02/13/2023 23:11:23 Attending Technologist(s): RT Margi(Deisi)(M), [facility] [place] Worker(s): Divya Rucker, [facility] letter sent: Normal over 40 Mammogram BI-RADS: 1 Negative Multiple national specialty organizations have released breast cancer screening guidelines for women at average risk for developing breast cancer - guidelines that are based on both evidence and opinion, yet differ on when to start and how often to screen for breast cancer. With representation from Breast Imaging, Internal Medicine, Women's Health, Family Medicine, and Medical/Surgical Oncology, the [facility] has carefully reviewed the data and reached the following consensus: 1) All women should engage in shared decision-making with their providers to decide when to start and how often to screen; 2) All women should have the opportunity to start screening mammography at age 40; 3) For women ages 45-55, we recommend annual screening mammograms; 4) For women ages 55 and over, we support both the transition from an annual to a biennial interval if this aligns more with patient's values and preferences, or continuation with annual screening; 5) All women should discuss with their providers when to stop screening mammograms. Decker Operator: Hannah Transcribe Date/Time: Feb 12 2023 1:11P Dictated by : RYAN ACKERMAN MD This examination was interpreted and the report reviewed and electronically signed by: RYAN ACKERMAN MD on Feb 13 2023 11:11PM EST Authorizing ProviderResult TypeResult StatusLakshmi Ari MDMAM-PAMAFinal Result from Last 3 Months or Most Recently Relevant to Health Maintenance Insurance Care Teams Team MemberRelationshipSpecialtyStart DateEnd Date Shu Kitchen MD [address] [place] [phone] [facility] - [facility]29[facility]13
--- NOTE | 2025-03-23 13:39 | ED.GENADUL1 ---
HPI HPI - General Adult General Chief complaint: Upper Respiratory Infection Stated complaint: SHORT OF BREATH, CONGESTION Time Seen by Provider: 03/23/25 12:37 Source: patient Mode of arrival: walk-in Limitations: no limitations History of Present Illness HPI narrative: Patient is a 49-year-old female presenting to the emergency department for evaluation of flulike symptoms and shortness of breath. Patient states has been ill with cough, congestion, myalgias, fatigue, and shortness of breath x 2 days. She was seen in urgent care 2 days ago and prescribed azithromycin/methylprednisolone. She was swabbed for COVID/flu at the time which were negative. She states that despite taking these medications she feels like she is getting worse. She denies fevers or chills. No abdominal pain, nausea, or vomiting. She is otherwise healthy with no chronic medical conditions other than hypothyroidism and a bicuspid aortic valve. She denies history of asthma or COPD. She does not smoke. No history of ID or coronary artery disease. No history of DVT/PE, leg swelling, mopped assist, or recent surgical changes. Related Data Previous Rx's ?Medication ?Instructions ?Recorded oseltamivir 75 mg capsule (Tamiflu) 75 mg PO BID 5 days #10 caps 03/23/25 Allergies Allergy/AdvReac Type Severity Reaction Status Date / Time No Known Drug Allergies Allergy Verified 03/23/25 14:05 Review of Systems ROS Status of ROS 10 or more systems reviewed and unremarkable except as noted in history and below [facility] Social History Little interest or pleasure in doing things: not at all Feeling down, depressed, or hopeless: not at all Exam Narrative Exam Narrative: CONSTITUTIONAL: She appears fatigued but nontoxic, answering questions and following commands appropriately SKIN: Was warm and dry. EYES: Sclerae white. EARS, NOSE, THROAT: Moist oral mucosa. RESPIRATORY: Clear to auscultation bilaterally, no wheezes, crackles, or stridor, no use of accessory muscles CARDIOVASCULAR: Normal rate and regular rhythm. There is no S3, S4, murmur, rub. GASTROINTESTINAL: Abdomen is nondistended. MUSCULOSKELETAL: No peripheral edema. NEUROLOGIC: Patient is awake and alert. Facies were symmetrical. Constitutional Vital Signs, click to edit/add: Last Vital Signs Temp 98.9 F 03/23/25 12:33 Pulse 86 03/23/25 12:33 Resp 18 03/23/25 12:33 BP 129/73 03/23/25 12:33 Pulse Ox 98 03/23/25 12:33 O2 Del Method Room Air 03/23/25 12:33 Course Vital Signs Vital signs: Vital Signs Temperature 98.9 F 03/23/25 12:33 Pulse Rate 86 03/23/25 12:33 Respiratory Rate 18 03/23/25 12:33 Blood Pressure 129/73 03/23/25 12:33 Pulse Oximetry 98 03/23/25 12:33 Oxygen Delivery Method Room Air 03/23/25 12:33 Temperature 98.9 F 03/23/25 12:33 Pulse Rate 86 03/23/25 12:33 Respiratory Rate 18 03/23/25 12:33 Blood Pressure 129/73 03/23/25 12:33 Pulse Oximetry 98 03/23/25 12:33 Oxygen Delivery Method Room Air 03/23/25 12:33 Medical Decision Making MDM Narrative Medical decision making narrative: Patient is a 49-year-old female, history only significant for hypothyroidism and a bicuspid aortic valve, presenting to the emergency department for 2-day history of flulike symptoms. Her vital signs on arrival are within normal limits. She is afebrile and hemodynamically stable. She is saturate 90% on room air with clear breath sounds bilaterally. Overall, she appears fatigued but nontoxic appearing. She appears well-hydrated and is tolerating p.o. Differential diagnosis includes viral URI, pneumonia. Low concern for cardiogenic etiologies such as CHF as she has no leg swelling, no history of cardiac disease, has clear breath sounds bilaterally, and is not hypoxic. Chest x-ray was obtained. Viral swabs were ordered. Chest x-ray independently reviewed/interpreted by myself demonstrated no acute cardiopulmonary process. Viral swabs are positive for influenza A. I do believe the patient is stable for discharge. They were instructed to follow up with her PCP as needed. Return precautions were given including any new or worsening symptoms. They were given a prescription for Tamiflu 75 mg twice daily x 5 days. Patient understands and agrees to the plan. FINAL IMPRESSION: #Acute influenza A infection DISPOSITION: Discharged home CONDITION: Good Lab Data Lab results reviewed: Yes I reviewed the patient's lab results Labs: Lab Results 03/23/25 Range/Units 13:36 Influenza Type A Ag Positive A Influenza Type B Ag Negative SARS-CoV-2 Ag (CV2AG) Negative (NEGATIVE) Imaging Data Chest x-ray: Attestation: I personally reviewed and interpreted this imaging study as follows: Discharge Plan Discharge Chief Complaint: Upper Respiratory Infection Clinical Impression: Influenza A Patient Disposition: Home, Self-Care Time of Disposition Decision: 14:05 Condition: Good Mode of Transportation: Private Vehicle Prescriptions / Home Meds: New oseltamivir [Tamiflu] 75 mg capsule 75 mg PO BID 5 Days Qty: 10 0RF Print Language: Tajik Instructions: Influenza (ED) Referrals: Shu Kitchen MD [Primary Care Provider, Family Practice] - 1 week
[2025-03-23 13:56] LABS: SARS-CoV-2 Ag NEGATIVE (NEGATIVE)
== END 2025-03-23 14:47 | disposition home or self-care (01) ==
PROVIDERS: Emergency Provider Student in an Organized Health Care Education/Training Program; PCP Family Medicine
DX: J10.1 Influenza due to other identified influenza virus with other respiratory manifestations (principal); R06.02 Shortness of breath; R05.9 Cough, unspecified; R53.83 Other fatigue
CPT/HCPCS: 71046; 87804; 87811; 99283